=== PATIENT | female | born 1995 | race Caucasian/White ===

== ENCOUNTER 2022-12-29 19:46 | Inpatient (IN) ==
[2022-12-29] MEDS ORDERED: SODIUM CHLORIDE 0.9% 1000ML 1,000 ML IV ONE ×2 (19:55→20:33)
[2022-12-29] MEDS ORDERED: ONDANSETRON INJ 2 MG/ML 2 ML VIAL IV STA (20:43)
[2022-12-29] MEDS ORDERED: fentaNYL citrate PF 100 MCG/2 ML VIAL IV PRN ×2 (20:43→21:37)
[2022-12-29 20:46] LABS: Basophils # (auto) 0.05 K/uL (0-0.2); Basophils % (auto) 0.4 %; Eosinophils # (auto) 0.01 K/uL (0-0.50); Eosinophils % (auto) 0.1 %; Hematocrit (blood only) 38.5 % (37.0-47.0); Hemoglobin 13.2 g/dl (12.0-16.0); Immature Granulocytes # (auto) 0.04 K/uL (0.01-0.20); Immature Granulocytes % (auto) 0.3 %; Lymphocytes # (auto) 1.39 K/uL (1.2-3.4); Lymphocytes % (auto) 11.4 %; Mean Corpuscular Hemoglobin 30.5 pg (25.0-34.0); Mean Corpuscular Hgb Conc 34.3 g/dL (32.0-36.0); Mean Corpuscular Volume 88.9 fL (80.0-100.0); Mean Platelet Volume 9.9 fL (9.4-12.4); Monocytes # (auto) 0.39 K/uL (0.11-0.59); Monocytes % (auto) 3.2 %; Neutrophils # (auto) 10.33 K/uL (1.40-6.50); Neutrophils % (auto) 84.6 %; Platelet Count 328 K/uL (130-400); RDW Coefficient of Variation 12.5 % (11.5-14.5); RDW Standard Deviation 40.9 fL (36.4-46.3); Red Blood Count 4.33 M/uL (4.20-5.40); White Blood Count 12.21 K/ul (4.8-10.8)
--- NOTE | 2022-12-29 20:50 | Ultrasound Report ---
US OB <= 14 weeks fetus CLINICAL HISTORY: first trimester with vaginal spotting and abdominal pain COMPARISON STUDY: None. FINDINGS: Transabdominal scanning of the pelvis was performed with commercial representative images submitted. T he uterus measures 6.1 x 2.5 cm. No intrauterine gestational sac identified. The right ovary is nini l in size and demonstrates normal color flow. The left ovary was not well visualized. Moderate to lar ge amount of complex fluid within the pelvis suggestive of hemoperitoneum. Within the left adnexa the re is a 2.1 cm tubular structure on image 24. There is surrounding blood flow within this lesion. No pole identified. This is highly suspicious for an ectopic . There is also free fluid w ithin the right upper quadrant. The technologist was unable to performed a transvaginal ultrasound du e to the patient's unstable condition. IMPRESSION: 1. No intrauterine gestational sac. 2. There is a 2.1 cm tubular structure within the left adnexa with a moderate to large amount of comp leander fluid within the pelvis. Therefore, these finds are highly suspicious for a ruptured left ectopic with hemoperitoneum. 2. These findings were discussed with Jaxson Copeland at 8:48 PM on 12/29/2022. ACT 112: Negative or not required by law. Electronically signed by: Magdaleno Lewis M.D. 12/29/2022 8:48 PM
--- NOTE | 2022-12-29 20:52 | History & Physical Report ---
Date of Service December 29, 2022 Assessment & Plan (1) Ruptured ectopic : Plan: Being resuscitated in ED with IV fluids Discussed findings with patient is agreebale to surgey-consents obtained for diagnostic laparoscopy, possible left salpingotomy, possible left salpingectomy, possible left oopherectomy. Discussed beneifts risks and altertives with patient (prior to IV nartocis given). Patient voiced understanding and consents signed COVID test pending 200mg IV doxy to be given (2) Hemoperitoneum: (3) 7 weeks gestation of : History of Present Illness Chief Complaint: Pelvic pain Primary Care Provider: [facility] Patient is with LMP 11/10/2022 NATHAN 08/16/2023, at approx 7 weeks 1 day. JOined in room with boyfriend. Noted worsening pelvic pain and called by ER MD for ruptured ectopic on US. Patient hypotensive and tachycardic with acute abdomen on exam. Labs pending Allergies Allergy/AdvReac Type Severity Reaction Status Date / Time buckwheat Allergy Swelling Verified 04/13/21 00:53 of Lip/Tongue/Throat Home Medications Medication Instructions Recorded Confirmed Type dextroamphetamine-amphetamine 10 15 mg PO DAILY 02/05/19 04/13/21 History mg tablet (Adderall) dextroamphetamine-amphetamine ER 30 mg PO DAILY 02/05/19 04/13/21 History 30 mg 24hr capsule,extend release (Adderall XR) Patient History Medical History ADHD Anxiety Social History Smoking Status: Current some day smoker Feels Safe at Home: Yes OB History [employer]AT [employer]ORER History sexually active with condoms, denies STD history. Never seen OBGYN Physical Exam Constitutional: WD/WN, vitals as above Respiratory: normal respiratory effort, lungs clear to auscultation Cardiovascular: Rate/Rhythm: regular rhythm and + tachycardic Gastrointestinal (Abdomen): Inspection/Auscultation: + abdomen distended Percussion/Palpation: + abdomen tender and + guarding Results & Data Vital Signs (Past 12 Hours) Vital Signs Temp Pulse Pulse Resp BP BP Pulse Ox 12/29/22 20:40 88 12/29/22 20:40 86 19 94/62 L 100 12/29/22 19:49 36.5 C 95 H 20 88/64 L 98 O2 Del Method 12/29/22 20:40 12/29/22 20:40 Room Air 12/29/22 19:49 Room Air Laboratory Results Laboratory Results WBC 12.21 K/ul (4.8-10.8) H 12/29/22 20:06 RBC 4.33 M/uL (4.20-5.40) 12/29/22 20:06 Hgb 13.2 g/dl (12.0-16.0) 12/29/22 20:06 Hct 38.5 % (37.0-47.0) 12/29/22 20:06 MCV 88.9 fL (80.0-100.0) 12/29/22 20:06 MCH 30.5 pg (25.0-34.0) 12/29/22 20:06 MCHC 34.3 g/dL (32.0-36.0) 12/29/22 20:06 RDW Std Deviation 40.9 fL (36.4-46.3) 12/29/22 20:06 RDW Coeff of Makenna 12.5 % (11.5-14.5) 12/29/22 20:06 Plt Count 328 K/uL (130-400) 12/29/22 20:06 MPV 9.9 fL (9.4-12.4) 12/29/22 20:06 Immature Gran % (Auto) 0.3 % 12/29/22 20:06 Neut % (Auto) 84.6 % 12/29/22 20:06 Lymph % (Auto) 11.4 % 12/29/22 20:06 Giles % (Auto) 3.2 % 12/29/22 20:06 Eos % (Auto) 0.1 % 12/29/22 20:06 Baso % (Auto) 0.4 % 12/29/22 20:06 Neut # (Auto) 10.33 K/uL (1.40-6.50) H 12/29/22 20:06 Lymph # (Auto) 1.39 K/uL (1.2-3.4) 12/29/22 20:06 Giles # (Auto) 0.39 K/uL (0.11-0.59) 12/29/22 20:06 Eos # (Auto) 0.01 K/uL (0-0.50) 12/29/22 20:06 Baso # (Auto) 0.05 K/uL (0-0.2) 12/29/22 20:06 Immature Gran # (Auto) 0.04 K/uL (0.01-0.20) 12/29/22 20:06 HCG, Qual Cancelled 12/29/22 20:06 Impressions Ultrasound 12/29/22 19:55 US OB <= 14 weeks fetus CLINICAL HISTORY: first trimester with vaginal spotting and abdominal pain COMPARISON STUDY: None. FINDINGS: Transabdominal scanning of the pelvis was performed with client support representative images submitted. The uterus measures 6.1 x 2.5 cm. No intrauterine gestational sac identified. The right ovary is normal in size and demonstrates normal color flow. The left ovary was not well visualized. Moderate to large amount of complex fluid within the pelvis suggestive of hemoperitoneum. Within the left adnexa there is a 2.1 cm tubular structure on image 24. There is surrounding blood flow within this lesion. No pole identified. This is highly suspicious for an ectopic . There is also free fluid within the right upper quadrant. The technologist was unable to performed a transvaginal ultrasound due to the patient's unstable condition. IMPRESSION: 1. No intrauterine gestational sac. 2. There is a 2.1 cm tubular structure within the left adnexa with a moderate to large amount of complex fluid within the pelvis. Therefore, these finds are highly suspicious for a ruptured left ectopic with hemoperitoneum. 2. These findings were discussed with Jaxson Copeland at 8:48 PM on 12/29/2022. ACT 112: Negative or not required by law. Electronically signed by: Magdaleno Lewis M.D. 12/29/2022 8:48 PM
[2022-12-29] MEDS ORDERED: BUPIVACAINE 0.5 % 5 MG/1 ML MPF 30ML VIAL ONE (20:56)
[2022-12-29] MEDS ORDERED: DOXYCYCLINE HYCLATE 200 MG in DEXTROSE 5% 100 ML IV STA (20:56)
[2022-12-29 20:58] LABS: Albumin Globulin Ratio 1.4 (0.9-2); Albumin Level 4.3 gm/dl (3.4-5.0); BUN Creatinine Ratio 20.3 (10-20); Bilirubin,Total 0.6 mg/dl (0.2-1.0); Calcium 9.4 mg/dl (8.6-10.3); Creatinine Clr Calc Pharmacy 116.1 ml/min; Est GFR (African American) 139.8 ml/min; Est GFR (Non-African American) 120.6 ml/min; Potassium 3.5 mmol/L (3.5-5.1); Total Protein 7.3 gm/dl (6.0-8.3)
--- NOTE | 2022-12-29 21:01 | Emergency Department Note ---
Impression & Plan Ruptured ectopic ED Provider Note INFORMANT: Patient ED PROVIDER(S): Moshe Viera MD CHIEF COMPLAINT: Abdominal pain PLAN: Disposition: Admitted Condition: Guarded Outpatient prescription management: none Referral: None MEDICAL DECISION MAKING: Patient presented to emergency [place] because of abdominal pain. Protocol was initiated by nursing. Patient underwent ultrasound imaging and had blood work obtained. Her CBC and chemistry was unremarkable. Her quantitative hCG was elevated. The patient's ultrasound was very concerning for ruptured ectopic pr egnancy. Consultation was made with Dr. Nelson of [employer]. Patient was treated with IV fluids and IV fentanyl. She was feeling better after pain management. MEDIA EXECUTIVE noted the patient would need emergent operative intervention. Patient was taken to the OR suite for further management. After review of the information above and other included data, I feel the patient requires emergent surgical intervention. Triage Nursing notes reviewed and agree them. Vital Signs: reviewed and remarkable for hypotension Prior /Outside records reviewed: none Differential diagnosis: Appendicitis, ovarian cyst, ovarian torsion, ectopic , TOA, PID, infections, diverticulitis, UTI, obstruction, mesenteric ischemia, aortic pathology, inflammatory bowel disease, renal colic, as well as other pathologies. Diagnostics, as interpreted by me: EC Lead ECG performed and revealed Normal sinus rhythm at 97, normal [place], QRS normal. No elevation or depression. No PACs or PVCs Cardiac Monitoring:Cardiac monitoring ordered by me: The patient was placed on continuous cardiac monitoring and observed. It revealed a normal sinus rhythm at 98 beats per minute without ectopy or evidence of dysrhythmia. Medical decision rules: none Imaging studies: Ultrasound as noted above. Concerning for ruptured ectopic . Abdominal free fluid noted. HPI: The patient is a 27year old female who presents to the Emergency Room with complaints of lower abdominal pain. This started today at 6 PM and is described as severe and sudden. Patient notes she has a positive home test. Last menstrual period was November 17. The patient also notes the following associated symptoms, lightheadedness, vaginal spotting for 10 days. The patient has found no relieving factors. Current pain is rated as 6/10. Pt denies LOC, headache, fevers, chills, diaphoresis, visual changes, neck pain, chest pain, breathing difficulties, nausea, vomiting, back pain, melena, hematochezia, urinary symptoms, numbness, weakness, lymphadenopathy, rash, or other complaints. PAST MEDICAL HISTORY: See Below, ADHD PAST SURGICAL HISTORY: See Below, patient denies SOCIAL HISTORY: See Below, smoker HOME MEDICATIONS: See Below ALLERGIES: See Below VITALS: See Below PHYSICAL EXAMINATION: GENERAL: Awake, alert, well-appearing, in no distress HENT: Normocephalic, atraumatic. Oropharynx unremarkable. EYES: No pale rmal conjunctiva. Sclera non-icteric. NECK: Inspection normal. Non-tender. Supple. No nuchal rigidity. FROM. No masses. RESPIRATORY: Clear to auscultation. No wheezes. No rales. Normal respiratory effort. CARDIAC: Borderline tachycardic rate. Normal rhythm. No murmurs. No rubs. Extremities warm and well perfused. Pulses equal. No JVD. GI: Soft, mildly-distended. Diffuse tenderness to palpation. Mild rebound and guarding. No masses. PELVIC: Deferred. MUSCULOSKELETAL: Atraumatic. Chest examination reveals no tenderness. The back is symmetrical on inspection without obvious abnormality. There is no CVA tenderness to palpation. No joint edema. LOWER EXTREMITIES: Calves are equal size bilaterally and non-tender. No edema. No discoloration. NEURO: Normal sensorium. No sensory or motor deficits noted. SKIN: No rash or jaundice noted. CRITICAL CARE: I have personally spent greater than 30 minutes of critical care time in the direct management of this patient. This includes bedside care, interpretation of diagnostic studies, and testing, discussion with consultants, patient, and other required patient management activities. These minutes are in excess of all separately billable procedures. 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 Tender Required: No Beliefs That Will Affect Care: None Current Living Situation: Significant Other Other Information That Helps Us Care for You: No Feels Safe at Home: Yes Safety Concerns: Feels Safe At This Time Assistive Devices: None Allergies Allergies Allergy/AdvReac Type Severity Reaction Status Date / Time buckwheat Allergy Swelling Verified 04/13/21 00:53 of Lip/Tongue/Throat Home Meds Home Medications Medication Instructions Recorded Confirmed dextroamphetamine-amphetamine 10 15 mg PO DAILY 02/05/19 04/13/21 mg tablet (Adderall) dextroamphetamine-amphetamine ER 30 mg PO DAILY 02/05/19 04/13/21 30 mg 24hr capsule,extend release (Adderall XR) Previous Rx's Medication Instructions Recorded ibuprofen 600 mg tablet 600 mg PO Q6H PRN pain #30 tabs 12/30/22 oxycodone-acetaminophen 5 mg-325 1 tab PO Q4H PRN pain #10 tabs 12/30/22 mg tablet (Percocet) Results & Data (ED) Vital Signs Vital Signs - 24 hr 12/29/22 19:49 12/29/22 20:40 12/29/22 20:40 Temperature 36.5 C Temperature Source Oral Pulse Rate 95 H 88 Pulse Rate [Apical] 86 Respiratory Rate 20 19 Respiratory Effort / Characteristics Non-Labored Spontaneous Respiratory Depth Normal Blood Pressure 88/64 L Blood Pressure [Right Arm] 94/62 L Blood Pressure Mean 72 Blood Pressure Mean [Right Arm] 72 Pulse Oximetry 98 100 Oxygen Delivery Method Room Air Room Air Sepsis Recent Fever Within 48 Hours No Sepsis New/Unexplained Change in Mental Status N/A Sepsis Action Taken by Nursing No Action Required 12/29/22 20:52 Temperature Temperature Source Pulse Rate Pulse Rate [Apical] 94 H Respiratory Rate 18 Respiratory Effort / Characteristics Respiratory Depth Blood Pressure Blood Pressure [Right Arm] 98/72 L Blood Pressure Mean Blood Pressure Mean [Right Arm] 80 Pulse Oximetry 100 Oxygen Delivery Method Room Air Sepsis Recent Fever Within 48 Hours Sepsis New/Unexplained Change in Mental Status Sepsis Action Taken by Nursing Laboratory Data 12/29/22 20:06 12/29/22 20:06 Lab Results 12/29/22 12/29/22 12/29/22 Range/Units 20:06 20:06 20:06 WBC 12.21 H (4.8-10.8) K/ul RBC 4.33 (4.20-5.40) M/uL Hgb 13.2 (12.0-16.0) g/dl Hct 38.5 (37.0-47.0) % MCV 88.9 (80.0-100.0) fL MCH 30.5 (25.0-34.0) pg MCHC 34.3 (32.0-36.0) g/dL RDW Std Deviation 40.9 (36.4-46.3) fL RDW Coeff of Makenna 12.5 (11.5-14.5) % Plt Count 328 (130-400) K/uL MPV 9.9 (9.4-12.4) fL Immature Gran % (Auto) 0.3 % Neut % (Auto) 84.6 % Lymph % (Auto) 11.4 % Alexander % (Auto) 3.2 % Eos % (Auto) 0.1 % Baso % (Auto) 0.4 % Neut # (Auto) 10.33 H (1.40-6.50) K/uL Lymph # (Auto) 1.39 (1.2-3.4) K/uL Alexander # (Auto) 0.39 (0.11-0.59) K/uL Eos # (Auto) 0.01 (0-0.50) K/uL Baso # (Auto) 0.05 (0-0.2) K/uL Immature Gran # (Auto) 0.04 (0.01-0.20) K/uL Sodium 135 L (136-145) mmol/L Potassium 3.5 (3.5-5.1) mmol/L Chloride 100 (98-107) mmol/L Carbon Dioxide 26 (21-32) mmol/L Anion Gap 9 (3-11) BUN 13 (6-23) mg/dl Creatinine 0.64 (0.6-1.2) mg/dl Est Cr Clr Drug Dosing 116.1 ml/min Est GFR ( Amer) 139.8 ml/min Est GFR (Non-Af Amer) 120.6 ml/min BUN/Creatinine Ratio 20.3 H (10-20) Glucose 175 H (70-99(Fasting)) mg/dl Calcium 9.4 (8.6-10.3) mg/dl Total Bilirubin 0.6 (0.2-1.0) mg/dl AST 16 (13-39) U/L ALT 21 (7-52) U/L Alkaline Phosphatase 57 (34-104) U/L Total Protein 7.3 (6.0-8.3) gm/dl Albumin 4.3 (3.4-5.0) gm/dl Globulin 3.0 (2.5-4.0) gm/dl Albumin/Globulin Ratio 1.4 (0.9-2) Lipase 11 (11-82) U/L HCG, Qual Cancelled HCG, Quant mIU/ml SARS-CoV-2, RNA, NAAT (NEGATIVE) Blood Type Antibody Screen Crossmatch 12/29/22 12/29/22 12/29/22 Range/Units 20:06 20:06 20:30 WBC (4.8-10.8) K/ul RBC (4.20-5.40) M/uL Hgb (12.0-16.0) g/dl Hct (37.0-47.0) % MCV (80.0-100.0) fL MCH (25.0-34.0) pg MCHC (32.0-36.0) g/dL RDW Std Deviation (36.4-46.3) fL RDW Coeff of Makenna (11.5-14.5) % Plt Count (130-400) K/uL MPV (9.4-12.4) fL Immature Gran % (Auto) % Neut % (Auto) % Lymph % (Auto) % Alexander % (Auto) % Eos % (Auto) % Baso % (Auto) % Neut # (Auto) (1.40-6.50) K/uL Lymph # (Auto) (1.2-3.4) K/uL Alexander # (Auto) (0.11-0.59) K/uL Eos # (Auto) (0-0.50) K/uL Baso # (Auto) (0-0.2) K/uL Immature Gran # (Auto) (0.01-0.20) K/uL Sodium (136-145) mmol/L Potassium (3.5-5.1) mmol/L Chloride (98-107) mmol/L Carbon Dioxide (21-32) mmol/L Anion Gap (3-11) BUN (6-23) mg/dl Creatinine (0.6-1.2) mg/dl Est Cr Clr Drug Dosing ml/min Est GFR ( Amer) ml/min Est GFR (Non-Af Amer) ml/min BUN/Creatinine Ratio (10-20) Glucose (70-99(Fasting)) mg/dl Calcium (8.6-10.3) mg/dl Total Bilirubin (0.2-1.0) mg/dl AST (13-39) U/L ALT (7-52) U/L Alkaline Phosphatase (34-104) U/L Total Protein (6.0-8.3) gm/dl Albumin (3.4-5.0) gm/dl Globulin (2.5-4.0) gm/dl Albumin/Globulin Ratio (0.9-2) Lipase (11-82) U/L HCG, Qual HCG, Quant [id number] mIU/ml SARS-CoV-2, RNA, NAAT NEGATIVE (NEGATIVE) Blood Type O Positive Antibody Screen NEGATIVE Crossmatch See Detail Administered Medications Discontinued Medications Bupivacaine HCl (Bupivacaine 0.5 % 5 Mg/1 Ml Mpf 30ml Vial) Confirm Administered Dose 30 ml .ROUTE .STK-MED ONE Stop: 12/29/22 20:57 Last Admin: 12/29/22 23:08 Dose: 12 ml Documented By: [id number] Fentanyl Citrate (Fentanyl Citrate Pf 100 Mcg/2 Ml Vial) 50 mcg IV Q15M PRN PRN Reason: Pain Stop: 01/12/23 20:42 Last Admin: 12/29/22 20:56 Dose: 50 mcg Documented By: MERLENE Sodium Chloride (Nss 1000ml) 1,000 mls @ 999 mls/hr IV .Q1H1M ONE Stop: 12/29/22 20:55 Last Infusion: 12/30/22 01:32 Dose: 0 mls/hr Documented By: Admin: 12/29/22 20:41 Dose: 999 mls/hr Documented By: Sodium Chloride (Nss 1000ml) 1,000 mls @ 999 mls/hr IV .Q1H1M ONE Stop: 12/29/22 21:33 Last Infusion: 12/30/22 01:32 Dose: 0 mls/hr Documented By: Admin: 12/29/22 20:53 Dose: 999 mls/hr Documented By: Doxycycline Hyclate 200 mg/ (Dextrose) 120 mls @ 50 mls/hr IV NOW STA Stop: 12/29/22 23:19 Last Admin: 12/29/22 21:50 Dose: 50 mls/hr Documented By: [id number] Sodium Chloride (Nss 1000ml) 1,000 mls @ 125 mls/hr IV .Q8H GABE Stop: 01/28/23 21:14 Last Admin: 12/30/22 06:10 Dose: Not Given Documented By: Admin: 12/30/22 03:29 Dose: 125 mls/hr Documented By: Admin: 12/30/22 01:30 Dose: Not Given Documented By: AJAY Ketorolac Tromethamine (Ketorolac 30 Mg/Ml Vial) 30 mg IV Q6H PRN PRN Reason: Pain Stop: 12/30/22 23:19 Last Admin: 12/30/22 03:33 Dose: 30 mg Documented By: AJAY Ondansetron HCl (Ondansetron Inj 2 Mg/Ml 2 Ml Vial) 4 mg IV NOW STA Stop: 12/29/22 20:44 Last Admin: 12/29/22 20:56 Dose: 4 mg Documented By: MERLENE Oxycodone/Acetaminophen (Oxycodone/Acetaminophen 5mg/325mg Tab) 1 tab PO Q4H PRN PRN Reason: Pain (Scale 1,2,3,4,5) Stop: 12/30/22 23:19 Last Admin: 12/30/22 06:39 Dose: 1 tab Documented By: AJAY Imaging Data Radiologist's Impression: Ultrasound 12/29/22 19:55 US OB <= 14 weeks fetus CLINICAL HISTORY: first trimester with vaginal spotting and abdominal pain COMPARISON STUDY: None. FINDINGS: Transabdominal scanning of the pelvis was performed with medical claims representative images submitted. The uterus measures 6.1 x 2.5 cm. No intrauterine gestational sac identified. The right ovary is normal in size and demonstrates normal color flow. The left ovary was not well visualized. Moderate to large amount of complex fluid within the pelvis suggestive of hemoperitoneum. Within the left adnexa there is a 2.1 cm tubular structure on image 24. There is surrounding blood flow within this lesion. No pole identified. This is highly suspicious for an ectopic . There is also free fluid within the right upper quadrant. The technologist was unable to performed a transvaginal ultrasound due to the patient's unstable condition. IMPRESSION: 1. No intrauterine gestational sac. 2. There is a 2.1 cm tubular structure within the left adnexa with a moderate to large amount of complex fluid within the pelvis. Therefore, these finds are hi ghly suspicious for a ruptured left ectopic with hemoperitoneum. 2. These findings were discussed with Jaxson Copeland at 8:48 PM on 12/29/2022. ACT 112: Negative or not required by law. Electronically signed by: Magdaleno Lewis M.D. 12/29/2022 8:48 PM Discharge Plan Visit Data Chief Complaint: Pelvic Pain Stated Complaint: SHARP PELVIC PAIN,CHEST PAIN, ED Provider: Moshe Viera Discharge Problem: Ruptured ectopic Patient Disposition: Admitted As Inpatient Condition: Good Discharge Instructions Interventions: ED Discharge Assessment Last Done: 12/29/22 21:27
[2022-12-29] MEDS ORDERED: ONDANSETRON INJ 2 MG/ML 2 ML VIAL IV PRN ×2 (21:15→21:37)
[2022-12-29] MEDS ORDERED: ACETAMINOPHEN 325 MG TAB PO PRN (21:15)
[2022-12-29] MEDS ORDERED: PROPOFOL IV EMULSION 10 MG/ML 20 ML VIAL IV ONE ×2 (21:17→23:22)
[2022-12-29] MEDS ORDERED: SUCCINYLCHOLINE 100MG/5ML SYR IV ONE (21:17)
[2022-12-29] MEDS ORDERED: fentaNYL citrate PF 100 MCG/2 ML VIAL ONE (21:17)
[2022-12-29] MEDS ORDERED: ROCURONIUM BROMIDE 10 MG/ML 5 ML VIAL IV ONE (21:17)
[2022-12-29] MEDS ORDERED: ePHEDrine sulfate 50 MG/ML AMP IV PRN (21:37)
[2022-12-29] MEDS ORDERED: HYDROmorphone INJ 2 MG/ML SYR/VIAL IV PRN (21:37)
[2022-12-29] MEDS ORDERED: ATROPINE SULFATE 0.1 MG/ML 10ML SYR IV PRN (21:37)
--- NOTE | 2022-12-29 21:37 | Anesthesiology Consultation ---
Date of Service December 29, 2022 Assessment & Plan ASA [id number] Proposed Anesthesia Anesthesia Type: General Risk / Benefits Reviewed With: PT / POA / Parent / Guardian, Accepts Plan and Informed Consent Obtained Additional Comments: full stomach--> rsi. emergency so cannot wait for npo status History Surgery Operation Date: 12/29/22 21:30 Proposed Procedures p Laparoscopic Ectopic - Leana Phan MD, PhD Height/Weight Height: 5 ft 3 in Weight: 63.2 kg Allergies Allergy/AdvReac Type Severity Reaction Status Date / Time buckwheat Allergy Swelling Verified 04/13/21 00:53 of Lip/Tongue/Throat Medications Home Medications Medication Instructions Recorded Confirmed Last Taken dextroamphetamine-amphetamine 10 15 mg PO DAILY 02/05/19 04/13/21 04/12/21 mg tablet (Adderall) dextroamphetamine-amphetamine ER 30 mg PO DAILY 02/05/19 04/13/21 04/12/21 30 mg 24hr capsule,extend release (Adderall XR) Active Medications Generic Name Dose Route Start Last Admin Trade Name Freq PRN Reason Stop Dose Admin Fentanyl Citrate 50 mcg 12/29/22 20:43 12/29/22 20:56 Fentanyl Citrate Pf 100 Mcg/2 Ml Vial IV 01/12/23 20:42 50 mcg Q15M PRN Administration Pain NPO Date Last Intake of Fluids: 12/29/22 Time Last Intake of Fluids: 19:00 Date Last Intake of Solids: 12/29/22 Time Last Intake of Solids: 19:00 Past Medical History Medical History ADHD Anxiety Anxiety Facial tingling Headache Insomnia Paresthesia Vision disturbance Vitamin D deficiency Exercise / Class Metabolic Activity II 4-5 Yardwork/Stairs/Walk up hill Past Anesthesia History No Hx of Anesthesia Complications and No Family Hx of Anesthesia Complications History of PONV No Hx of PONV and No Hx of Motion Sickness Social History Smoking Status: Current some day smoker Review of Systems denies fever/cough/ colds/ chest pain/ SOB/ DAVID denies DAVID Physical Exam Vital Signs Last Vital Signs Temp 36.5 C 12/29/22 19:49 Pulse 81 12/29/22 21:07 Resp 19 12/29/22 21:07 BP 111/62 12/29/22 21:07 Pulse Ox 100 12/29/22 21:07 O2 Del Method Room Air 12/29/22 21:27 ENMT Mouth: no TMJ abnormality and no dentition abnormality Thyromental Distance: > or= 3.5 Finger Breadths Mallampati Class: II Neck neck extension not limited Respiratory normal respiratory effort; no respiratory distress Auscultation: lungs clear to auscultation bilaterally Cardiovascular Rate/Rhythm: regular rate and regular rhythm Neurologic moves all extremities Psychiatric Orientation: alert and oriented x 3 Testing Laboratory Results 12/29/22 20:06 12/29/22 20:06 HCG, Quant [id number] mIU/ml 12/29/22 20:06 Blood Type O Positive 12/29/22 20:06 12/29/22 20:06 HCG, Quant [id number]
[2022-12-29] MEDS ORDERED: GLYCOPYRROLATE 0.2 MG/ML VIAL ONE ×2 (22:08→22:09)
[2022-12-29] MEDS ORDERED: NEOSTIGMINE METHYLSULFATE 1 MG/ML 10ML VIAL ONE (22:08)
[2022-12-29] MEDS ORDERED: ePHEDrine sulfate 50 MG/ML SYR ONE ×2 (22:08→22:57)
[2022-12-29] MEDS ORDERED: PHENYLEPHRINE 100MCG/ML 5ML SYR ONE ×2 (22:08→22:57)
[2022-12-29] MEDS ORDERED: ONDANSETRON INJ 2 MG/ML 2 ML VIAL ONE (22:13)
[2022-12-29] MEDS ORDERED: DEXAMETHASONE SOD INJ 4 MG/ML VIAL ONE (22:13)
[2022-12-29] MEDS ORDERED: SODIUM CHLORIDE 0.9% 250 ML IV PRN (22:21)
[2022-12-29] MEDS ORDERED: SUGAMMADEX SODIUM 200 MG/2 ML VIAL IV ONE (23:05)
[2022-12-29] MEDS ORDERED: oxyCODONE/ACETAMINOPHEN 5mg/325mg TAB PO PRN (23:20)
[2022-12-29] MEDS ORDERED: KETOROLAC 30 MG/ML VIAL IV PRN (23:20)
--- NOTE | 2022-12-29 23:30 | Operative Report ---
Post Operative Report Pre & Post Diagnosis Operation Date: 12/29/22 21:30 Pre-Op Diagnosis: Ruptured ectopic Hemoperitoneum Post-Op Diagnosis: Ruptured left ectopic Hemoperitoneum approximately 2 L I identified the patient and participated in the time-out.: Yes Procedure Operation Date: 12/29/22 21:30 Actual Procedures p Laparoscopic left salpingectomy- Leana Phan MD, PhD Surgeon Leana Phan MD, PhD Director Of Acquisition Marketing Temitope Gomez MD Estimated Blood Loss 2,000 Findings Consistent with Post-Op Diagnosis Surgical abdomen, distended, tender with rebound Normal-appearing external genitalia Vagina: Normal, small amount of bleeding Cervix: Approximately fingertip dilated, retroverted uterus Hemoperitoneum approximately 2 L with active bleeding from left fallopian tube Noted ruptured ectopic on left fallopian tube, with active bleeding, normal- appearing left and right ovaries, normal-appearing uterus, normal-appearing right fallopian tube. Appendix not visualized Fluids 2400 mls Specimens Left fallopian tube with ectopic Drains Miles catheter Anesthesia Type General Complications None Disposition Accompanied Patient To Recovery: No Indications Ruptured ectopic , hemoperitoneum, patient unstable with hypotension and tachycardia Description of Procedure Attestation: My Director Of Acquisition Marketing was necessary throughout the procedure(s) for tissue retraction, camera operation I understand that section 1842 (b)(7)(D) of the Social Security Act generally prohibits Medicare physician fee schedule payment for the services of [id number] in teaching hospitals when qualified residents are available to furnish such services. I certify that the services for which payment is claimed were medically necessary, and that no qualified resident was available to perform the services. I further understand that these services are subject to post-payment review by the Medicare carrier. Procedure The patient was taken to the operating room where general anesthesia was found to be adequate. She was placed in [facility] stirrups. She was prepped and draped in a sterile fashion. The bladder was drained with Miles catheter and a uterine manipulator (sponge stick) was placed in a sterile fashion. Attention was turned of the abdomen in a sterile fashion. After infusion of local anesthesia , a 5 mm infraumbilical incision was made with a scalpel. A 5 mm trocar was placed under laparoscopic visualization, and noted large amount of blood in abdomen. Gas was turned on, and pneumoperitoneum was achieved. The underlying bowel and vasculature were inspected and found to be free from injury. At this time noted approximately 2 L of fresh blood in the abdomen and pelvis, with active bleeding noted from the left side of the pelvis. Trendelenburg position was then obtained Next, a 5 mm right lower quadrant port and a left 5 mm port were placed under laparoscopic visualization. The left lower quadrant port was then changed to 11 mm port. The left fallopian tube with ruptured ectopic and active bleeding was identified. At this point Dr. Aguero was called in to assist. A LigaSure device was used to remove the fallopian tube from the mesosalpinx, ovary, and uterus. A 10 bag was then placed through the port, and the left fallopian tube and ectopic were placed into the laparoscopic bag and removed from the abdomen. Hemostasis was ensured. The remainder of the clot and blood was removed from the abdomen and pelvis with suction and irrigation. Evaluation of the upper abdomen revealed no further pathology. Attempt was then made with a Alcides Oconnor to close the 11 mm port, but was unsuccessful as I was unable to achieve pneumoperitoneum. Pneumoperitoneum was released and the trocars were removed. At this point I attempted to close the fascia with estrus retractors, but due to the depth of the subcutaneous tissue, and the bowel that was felt underneath, I did not feel that it was safe at this point to close the 11 mm fascial defect. Decision was then made to close with subcutaneous tissue with 2-0 Vicryl in interrupted fashion. The skin was closed with 4-0 Vicryl in a subcuticular fashion. Dermabond was placed over the incisions. The uterine manipulator was removed and hemostasis ensured. The patient was cleaned and dried and legs brought down from lithotomy position simultaneously. The patient was extubated and transfered to recovery in stable condition. Sponge, lap and needle counts were reported correct by the nursing staff following the procedure. Stephen Phan MD PhD I attest to the content of the Intraoperative Record and any orders documented therein. Any exceptions are noted below.
--- NOTE | 2022-12-29 23:44 | Anesthesiology Progress Note ---
Date of Service December 29, 2022 Anesthesia Post Procedure Vital Signs Vital Signs: Temp Pulse Pulse Resp BP BP Pulse Ox 12/29/22 21:27 12/29/22 21:07 81 19 111/62 100 12/29/22 20:52 94 H 18 98/72 L 100 12/29/22 20:40 88 12/29/22 20:40 86 19 94/62 L 100 12/29/22 19:49 36.5 C 95 H 20 88/64 L 98 O2 Del Method 12/29/22 21:27 Room Air 12/29/22 21:07 Room Air 12/29/22 20:52 Room Air 12/29/22 20:40 12/29/22 20:40 Room Air 12/29/22 19:49 Room Air Pain Intensity Abdomen: Pain Intensity: 5 Transfer of Care Handoff Completed per policy Notes Mental Status: alert / awake / arousable and participated in evaluation Patient Amnestic to Procedure: Yes Nausea / Vomiting: adequately controlled Pain: adequately controlled Airway Patency, RR, SpO2: stable & adequate BP & HR: stable & adequate Hydration State: stable & adequate Anesthetic Complications: no major complications apparent and Pt Satisfied with anesthetic care Notes: pt recieving a unit of blood
[2022-12-30] MEDS: SODIUM CHLORIDE 0.9% 1000ML 1,000 ML IV SCH ×3 (01:30→06:10)
[2022-12-30 05:24] LABS: Hematocrit (blood only) 29.7 % (37.0-47.0); Hemoglobin 9.8 g/dl (12.0-16.0)
--- NOTE | 2022-12-30 09:51 | Obstetrical Progress Note ---
Date of Service December 30, 2022 Subjective Ambulation: limited ambulation Voiding: watts catheter in place Passing Gas:: Yes Diet Tolerance:: regular diet Current Pain Level(1-10): 0 doing well Physical Exam Constitutional WD/WN, vitals as above Gastrointestinal (Abdomen) Inspection/Auscultation: abdomen normal to inspection and + abdominal surgical incision Musculoskeletal Extremities: extremities normal to inspection Skin no rashes, warm and dry Neurologic patellar DTR's 2+ bilat, sensation intact Psychiatric A+Ox3, euthymic affect Results & Data Vital Signs (Past 12 Hours) Vital Signs Temp Pulse Pulse Pulse Resp BP BP 12/30/22 07:25 36.9 C 89 16 99/63 L 12/30/22 04:00 36.9 C 94 H 18 99/53 L 12/30/22 02:45 36.8 C 97 H 16 101/47 L 12/30/22 02:00 36.6 C 98 H 16 92/48 L 12/30/22 01:45 36.6 C 98 H 16 92/48 L 12/30/22 00:45 36.3 C L 90 14 95/53 L 12/30/22 01:15 36.3 C L 93 H 14 94/52 L 12/30/22 00:45 36.3 C L 90 14 95/53 L 12/30/22 01:00 36.3 C L 12/30/22 00:25 84 14 93/54 L 12/30/22 00:15 93 H 16 91/51 L 12/30/22 00:05 36.1 C L 90 18 97/59 L 12/29/22 23:55 96 H 18 98/56 L 12/29/22 23:45 97 H 14 100/58 L 12/29/22 23:35 90 16 102/53 L 12/29/22 23:28 36 C L 94 H 14 98/47 L Pulse Ox O2 Del Method O2 Flow Rate 12/30/22 07:25 Room Air 12/30/22 04:00 100 Room Air 12/30/22 02:45 100 Room Air 12/30/22 02:00 98 12/30/22 01:45 98 12/30/22 00:45 100 Room Air 12/30/22 01:15 100 12/30/22 00:45 100 12/30/22 01:00 12/30/22 00:25 100 Room Air 12/30/22 00:15 100 Room Air 12/30/22 00:05 100 Room Air 12/29/22 23:55 100 Room Air 12/29/22 23:45 100 Room Air 12/29/22 23:35 100 Oxymask 6 12/29/22 23:28 100 Oxymask 6 Laboratory Results 12/29/22 12/29/22 12/29/22 20:06 20:06 20:06 WBC 12.21 H RBC 4.33 Hgb 13.2 Hct 38.5 MCV 88.9 MCH 30.5 MCHC 34.3 RDW Std Deviation 40.9 RDW Coeff of Makenna 12.5 Plt Count 328 MPV 9.9 Immature Gran % (Auto) 0.3 Neut % (Auto) 84.6 Lymph % (Auto) 11.4 [place] % (Auto) 3.2 Eos % (Auto) 0.1 Baso % (Auto) 0.4 Neut # (Auto) 10.33 H Lymph # (Auto) 1.39 [place] # (Auto) 0.39 Eos # (Auto) 0.01 Baso # (Auto) 0.05 Immature Gran # (Auto) 0.04 Absolute Nucleated RBC Nucleated RBC % (auto) Neutrophils % (Manual) Band Neutrophils % Lymphocytes % (Manual) Prolymphocyte % Reactive Lymphs % (Man) Monocytes % (Manual) Eosinophils % (Manual) Basophils % (Manual) Metamyelocytes % (Man) Myelocytes % (Man) Promyelocytes % (Man) Blast Cells % (Manual) Plasma Cell % (Manual) Other Cells % Nucleated RBC % Neutrophils # (Manual) Band Neutrophils # Total Absolute Neuts Lymphocytes # (Manual) Prolymphocyte # Reactive Lymphs # Total Abs Lymphocytes Monocytes # (Manual) Eosinophils # (Manual) Basophils # (Manual) Metamyelocytes # (Man) Myelocytes # (Manual) Promyelocytes # (Man) Blast Cells # (Man) Plasma Cell # (Manual) Other Cells # Nucleated RBCs # (Man) Hypersegmented Neuts Hyposegmented Neuts Hypogranular Neuts Large Granular Lymphs # Lrg Granular Lymphs Hairy Cells Smudge Cells Toxic Granulation Toxic Vacuolation Dohle Bodies Elias Rods Platelet Estimate Hypogranular Platelets Giant Platelets Platelet Satelliting RBC Morphology Polychromasia Hypochromasia Poikilocytosis Basophilic Stippling Anisocytosis Microcytosis Macrocytosis Spherocytes Pappenheimer Bodies Sickle Cells Target Cells Tear Drop Cells Ovalocytes Stomatocytes Estrada-Green Bodies Echinocytes Acanthocytes (Spur) Rouleaux RBC Agglutinates Schistocytes Sezary Cell Sodium 135 L Potassium 3.5 Chloride 100 Carbon Dioxide 26 Anion Gap 9 BUN 13 Creatinine 0.64 Est Cr Clr Drug Dosing 116.1 Est GFR ( Amer) 139.8 Est GFR (Non-Af Amer) 120.6 BUN/Creatinine Ratio 20.3 H Glucose 175 H Calcium 9.4 Total Bilirubin 0.6 AST 16 ALT 21 Alkaline Phosphatase 57 Total Protein 7.3 Albumin 4.3 Globulin 3.0 Albumin/Globulin Ratio 1.4 Lipase 11 HCG, Qual Cancelled HCG, Quant SARS-CoV-2, RNA, NAAT Blood Parasites ID Blood Type Blood Type Recheck Antibody Screen Crossmatch 12/29/22 12/29/22 12/29/22 20:06 20:06 20:30 WBC RBC Hgb Hct MCV MCH MCHC RDW Std Deviation RDW Coeff of Makenna Plt Count MPV Immature Gran % (Auto) Neut % (Auto) Lymph % (Auto) [place] % (Auto) Eos % (Auto) Baso % (Auto) Neut # (Auto) Lymph # (Auto) [place] # (Auto) Eos # (Auto) Baso # (Auto) Immature Gran # (Auto) Absolute Nucleated RBC Nucleated RBC % (auto) Neutrophils % (Manual) Band Neutrophils % Lymphocytes % (Manual) Prolymphocyte % Reactive Lymphs % (Man) Monocytes % (Manual) Eosinophils % (Manual) Basophils % (Manual) Metamyelocytes % (Man) Myelocytes % (Man) Promyelocytes % (Man) Blast Cells % (Manual) Plasma Cell % (Manual) Other Cells % Nucleated RBC % Neutrophils # (Manual) Band Neutrophils # Total Absolute Neuts Lymphocytes # (Manual) Prolymphocyte # Reactive Lymphs # Total Abs Lymphocytes Monocytes # (Manual) Eosinophils # (Manual) Basophils # (Manual) Metamyelocytes # (Man) Myelocytes # (Manual) Promyelocytes # (Man) Blast Cells # (Man) Plasma Cell # (Manual) Other Cells # Nucleated RBCs # (Man) Hypersegmented Neuts Hyposegmented Neuts Hypogranular Neuts Large Granular Lymphs # Lrg Granular Lymphs Hairy Cells Smudge Cells Toxic Granulation Toxic Vacuolation Dohle Bodies Elias Rods Platelet Estimate Hypogranular Platelets Giant Platelets Platelet Satelliting RBC Morphology Polychromasia Hypochromasia Poikilocytosis Basophilic Stippling Anisocytosis Microcytosis Macrocytosis Spherocytes Pappenheimer Bodies Sickle Cells Target Cells Tear Drop Cells Ovalocytes Stomatocytes Estrada-Green Bodies Echinocytes Acanthocytes (Spur) Rouleaux RBC Agglutinates Schistocytes Sezary Cell Sodium Potassium Chloride Carbon Dioxide Anion Gap BUN Creatinine Est Cr Clr Drug Dosing Est GFR ( Amer) Est GFR (Non-Af Amer) BUN/Creatinine Ratio Glucose Calcium Total Bilirubin AST ALT Alkaline Phosphatase Total Protein Albumin Globulin Albumin/Globulin Ratio Lipase HCG, Qual HCG, Quant SARS-CoV-2, RNA, NAAT NEGATIVE Blood Parasites ID Blood Type O Positive Blood Type Recheck Antibody Screen NEGATIVE Crossmatch See Detail 12/30/22 12/30/22 12/30/22 04:41 04:41 04:41 WBC Cancelled RBC Cancelled Hgb Cancelled 9.8 L D Hct Cancelled 29.7 L MCV Cancelled MCH Cancelled MCHC Cancelled RDW Std Deviation Cancelled RDW Coeff of Makenna Cancelled Plt Count Cancelled MPV Cancelled Immature Gran % (Auto) Cancelled Neut % (Auto) Cancelled Lymph % (Auto) Cancelled [place] % (Auto) Cancelled Eos % (Auto) Cancelled Baso % (Auto) Cancelled Neut # (Auto) Cancelled Lymph # (Auto) Cancelled [place] # (Auto) Cancelled Eos # (Auto) Cancelled Baso # (Auto) Cancelled Immature Gran # (Auto) Cancelled Absolute Nucleated RBC Cancelled Nucleated RBC % (auto) Cancelled Neutrophils % (Manual) Cancelled Band Neutrophils % Cancelled Lymphocytes % (Manual) Cancelled Prolymphocyte % Cancelled Reactive Lymphs % (Man) Cancelled Monocytes % (Manual) Cancelled Eosinophils % (Manual) Cancelled Basophils % (Manual) Cancelled Metamyelocytes % (Man) Cancelled Myelocytes % (Man) Cancelled Promyelocytes % (Man) Cancelled Blast Cells % (Manual) Cancelled Plasma Cell % (Manual) Cancelled Other Cells % Cancelled Nucleated RBC % Cancelled Neutrophils # (Manual) Cancelled Band Neutrophils # Cancelled Total Absolute Neuts Cancelled Lymphocytes # (Manual) Cancelled Prolymphocyte # Cancelled Reactive Lymphs # Cancelled Total Abs Lymphocytes Cancelled Monocytes # (Manual) Cancelled Eosinophils # (Manual) Cancelled Basophils # (Manual) Cancelled Metamyelocytes # (Man) Cancelled Myelocytes # (Manual) Cancelled Promyelocytes # (Man) Cancelled Blast Cells # (Man) Cancelled Plasma Cell # (Manual) Cancelled Other Cells # Cancelled Nucleated RBCs # (Man) Cancelled Hypersegmented Neuts Cancelled Hyposegmented Neuts Cancelled Hypogranular Neuts Cancelled Large Granular Lymphs Cancelled # Lrg Granular Lymphs Cancelled Hairy Cells Cancelled Smudge Cells Cancelled Toxic Granulation Cancelled Toxic Vacuolation Cancelled Dohle Bodies Cancelled Elias Rods Cancelled Platelet Estimate Cancelled Hypogranular Platelets Cancelled Giant Platelets Cancelled Platelet Satelliting Cancelled RBC Morphology Cancelled Polychromasia Cancelled Hypochromasia Cancelled Poikilocytosis Cancelled Basophilic Stippling Cancelled Anisocytosis Cancelled Microcytosis Cancelled Macrocytosis Cancelled Spherocytes Cancelled Pappenheimer Bodies Cancelled Sickle Cells Cancelled Target Cells Cancelled Tear Drop Cells Cancelled Ovalocytes Cancelled Stomatocytes Cancelled Estrada-Green Bodies Cancelled Echinocytes Cancelled Acanthocytes (Spur) Cancelled Rouleaux Cancelled RBC Agglutinates Cancelled Schistocytes Cancelled Sezary Cell Cancelled Sodium Potassium Chloride Carbon Dioxide Anion Gap BUN Creatinine Est Cr Clr Drug Dosing Est GFR ( Amer) Est GFR (Non-Af Amer) BUN/Creatinine Ratio Glucose Calcium Total Bilirubin AST ALT Alkaline Phosphatase Total Protein Albumin Globulin Albumin/Globulin Ratio Lipase HCG, Qual HCG, Quant SARS-CoV-2, RNA, NAAT Blood Parasites ID Cancelled Blood Type Blood Type Recheck O Positive Antibody Screen Crossmatch
--- NOTE | 2022-12-31 20:13 | Electrocardiogram Report ---
Test Reason : Blood Pressure : / mmHG Vent. Rate : 097 BPM Atrial Rate : 097 BPM P-R Int : 136 ms QRS Dur : 076 ms QT Int : 352 ms P-R-T Axes : 048 033 049 degrees QTc Int : 447 ms Normal sinus rhythm Normal ECG When compared with ECG of 05-FEB-2019 03:26, No significant change was found Confirmed by Young Collier ([id number]) on 12/31/2022 8:13:34 PM Referred By: REFERRED SELF Confirmed By:Young Collier
== END 2022-12-30 10:35 | disposition home or self-care (01) | DRG 817 ==
LOC: ED 19:46 → OR 21:27 → 4E1 21:28

== ENCOUNTER 2024-01-04 10:58 | Inpatient (IN) ==
--- NOTE | 2024-01-04 11:27 | ED Triage Note ---
Date of Service January 04, 2024 Provider in Triage Author: Davin Bosch History of Present Illness This patient was briefly evaluated while in triage. An abbreviated physical exam was performed. This patient is a 28-year-old Female who presents to the ED for evaluation of lightheadedness, worsening cough and nausea. The patient reports that she has been unable to remain hydrated. Patient's O2 saturation at home was around 70% this morning. Patient underwent surgery 3 days ago for an ectopic . Patient denies any unusual discomfort or appearance of her surgical site. Physical Exam CONSTITUTIONAL: Healthy and well nourished. Patient does not appear in any acute distress. HEENT: No scleral icterus or conjunctival injection. RESPIRATORY: Clear to auscultation bilaterally with no wheezing, crackles, rhonchi or stridor. CARDIOVASCULAR: Regular rate and rhythm with no murmurs, rubs or gallops. GASTROINTESTINAL: Bowel sounds present in all quadrants. Minimal nonfocal tenderness to palpation. INTEGUMENTARY: No rash or other significant dermatologic conditions noted. HEMATOLOGIC: No ecchymosis or petechiae. PSYCHIATRIC: Positive affect. NEUROLOGIC: No focal neurologic deficits noted. Initial orders for labs and / or imaging were placed and patient was placed in the waiting area until a bed is available. Please see further documentation for the full ED course.
[2024-01-04 12:19] LABS: Hematocrit (blood only) 19.3 % (37.0-47.0); Hemoglobin 6.5 g/dl (12.0-16.0); Mean Corpuscular Hemoglobin 30.5 pg (25.0-34.0); Mean Corpuscular Hgb Conc 33.7 g/dL (32.0-36.0); Mean Corpuscular Volume 90.6 fL (80.0-100.0); Mean Platelet Volume 9.6 fL (9.4-12.4); Platelet Count 249 K/uL (130-400); RDW Coefficient of Variation 12.9 % (11.5-14.5); RDW Standard Deviation 42.5 fL (36.4-46.3); Red Blood Count 2.13 M/uL (4.20-5.40); White Blood Count 12.32 K/ul (4.8-10.8)
[2024-01-04 12:27] LABS: Albumin Globulin Ratio 1.5 (0.9-2); Albumin Level 3.9 gm/dl (3.4-5.0); BUN Creatinine Ratio 22.4 (10-20); Bilirubin,Total 0.4 mg/dl (0.2-1.0); Calcium 8.9 mg/dl (8.6-10.3); Creatinine Clr Calc Pharmacy 131.3 ml/min; Est GFR (African American) 143.4 ml/min; Est GFR (Non-African American) 123.7 ml/min; Globulin 2.6 gm/dl (2.5-4.0); Total Protein 6.5 gm/dl (6.0-8.3)
[2024-01-04] MEDS: ONDANSETRON INJ 2 MG/ML 2 ML VIAL IV STA ×2 (12:31→14:30)
[2024-01-04] MEDS: SODIUM CHLORIDE 0.9% 1,000 ML IV ONE (12:32)
[2024-01-04] MEDS: ONDANSETRON INJ 2 MG/ML 2 ML VIAL ONE (12:32)
[2024-01-04 12:33] LABS: Basophils # (auto) 0.03 K/uL (0.00-0.20); Basophils % (auto) 0.2 %; Eosinophils # (auto) 0.03 K/uL (0.00-0.50); Eosinophils % (auto) 0.2 %; Immature Granulocytes % (auto) 0.8 %; Lymphocytes # (auto) 1.81 K/uL (1.20-3.40); Lymphocytes % (auto) 14.7 %; Monocytes # (auto) 0.52 K/uL (0.11-0.59); Monocytes % (auto) 4.2 %; Neutrophils # (auto) 9.83 K/uL (1.40-6.50); Neutrophils % (auto) 79.9 %; Polychromasia 1+
[2024-01-04 12:35] LABS: Troponin I High Sensitivity 502.3 pg/ml (0-14)
[2024-01-04] MEDS: OPTIRAY 320 125ml IV ONE (12:40)
[2024-01-04 12:41] LABS: Influenza A virus by PCR Negative (Neg); Influenza B virus by PCR Negative (Neg); RSV by PCR Negative (Neg); SARS CoV2 RNA(COVID-19) Ceph NEGATIVE (Negative)
--- NOTE | 2024-01-04 12:41 | Emergency Department Note ---
Impression & Plan Hypoxia, Lightheadedness, Non-ST elevation SD (NSTEMI), Elevated brain natriuretic peptide (BNP) level, Bilateral pneumonia, Pulmonary edema, Anemia requiring transfusions ED Provider Note HISTORY OF PRESENT ILLNESS: Patient is a 28-year-old female presenting with lightheadedness and shortness of breath. Patient reports that she had a surgery for ruptured ectopic 3 days ago. Reports she been doing well up until today when she woke up today and felt very lightheaded every time she stood up. Reports that she gets very nauseous and feels like she is going to pass out. She took her home oxygen level and a home pulse ox and her sats were in the 70s. She denies any chest pain. Denies any vaginal bleeding or discharge. On my assessment, she is complaining of feeling very lightheaded like she is going to pass out. ROS: as above PHYSICAL EXAM: Constitutional: Patient appears in no acute distress. HENT: Head: Normocephalic and atraumatic. Eyes: EOMI, PERRL Mouth/Throat: Mucous membranes moist. Neck: Trachea midline. Neck supple. Cardiovascular: Tachycardic with regular rhythm. No murmurs, rubs or gallops. Intact distal pulses. Pulmonary/Chest: Patient is tachypneic. She is on 6 L via oxime mask. No expiratory wheezes appreciated Abdominal: Abdomen soft, no tenderness, rebound or guarding. Musculoskeletal: No edema, tenderness or deformity noted. Skin: Warm and dry. No rash, erythema, pallor or cyanosis Psychiatric: Appropriate mood and affect for situation. Neurological: Alert and keenly responsive. CN II-XII grossly intact, moving all extremities equally and fully. MDM: - Vitals signs showed hypoxia. Patient was started on 6 L via oxi-mask. - History obtained via patient. History as above. - Chronic conditions affecting care: ADHD - Differential diagnoses include, but are not limited to: Acute coronary syndrome; pulmonary embolism; dissection; tension pneumothorax; pneumonia; intra-abdominal hemorrhage - Order placed for continuous cardiac monitoring. At this time, monitor showed rate of 96 bpm with normal sinus rhythm, per my interpretation. - External medical records reviewed. Operative report dated 01/01/2024 was reviewed. Patient was taken to the OR for an operative laparoscopic surgery for right salpingectomy and evacuation of clot secondary to a ruptured ectopic . She was found to have some hemoperitoneum. - EKG interpreted by myself showed normal sinus rhythm. Rate tachycardic at 100 bpm. QT 350. No acute ischemic changes. - Laboratory workup interpreted by myself showed leukocytosis (WBC 12.32); anemia (Hgb 6.5); slight hyponatremia (Na 135); normal lactate; elevated troponin (502.3); elevated BNP (552) - CT PE negative for PE, but noted to have small to moderate pleural effusions (R>L) and evidence of fluid overload/congestive failure. Also noted to have asymmetric airspace opacities in both lungs (R>L) - CT abdomen/pelvis with IV contrast showed small hyperdense pelvic fluid with trace ascites compatible with her recent surgery. - Blood cultures ordered - Type and screen ordered - IV rocephin ordered empirically for sepsis coverage. - 1 unit PRBC ordered. Patient given 1g IV tylenol and 4 mg IV zofran for headache and nausea. - Patient's saturations >93% on 8L oxymask. - Given patient's NSTEMI and elevated BNP in setting of pulmonary edema, will need further inpatient workup for heart failure, such as echocardiogram. - Discussion was had with geriatric case manager about patient's case and need for admission - Hospitalist consulted for admission - Patient admitted to [facility] for further evaluation and management. I have personally spent 43 minutes of critical care time in the direct management of this patient. This includes bedside care, interpretation of diagnostic studies, and testing, discussion with consultants, patient, and family members, and other required patient management activities. This 43 minutes is in excess of all separately billable procedures. ASSESSMENT AND PLAN: Diagnosis: sepsis; anemia requiring transfusion; NSTEMI; elevated BNP; hypoxia; lightheadedness; pulmonary edema Plan: admit Past Med/Surg History Problem List (Updated 01/04/24 @ 14:38 by Donna Dumont PA-C) Acute respiratory failure with hypoxia Anemia requiring transfusions (Acute) Pulmonary edema (Acute) Bilateral pneumonia (Acute) Elevated brain natriuretic peptide (BNP) level (Acute) Non-ST elevation SD (NSTEMI) (Acute) Lightheadedness (Acute) Hypoxia (Acute) Postop check Hypokalemia (Acute) Acute hypotension (Acute) Ectopic (Acute) Ectopic without intrauterine Vaginal spotting (Acute) Abnormal human chorionic gonadotropin (hCG) History of ectopic Abdominal pain, RLQ (Acute) Encounter for assessment for suspected ectopic (Acute) (Acute) Chronic migraine Adult ADHD (attention deficit hyperactivity disorder) Ruptured ectopic (Acute) 7 weeks gestation of Hemoperitoneum Ruptured ectopic Medical History Anxiety Vitamin D deficiency Vision disturbance Paresthesia Insomnia Headache Facial tingling Anxiety ADHD Social History Smoking Status: Current every day smoker Tobacco Type: Cigarettes Cigarettes Per Day: 3; Do You Dip or Chew Tobacco: No; Hx Alcohol Use: Yes Alcohol type: beer Hx Substance Use: No Preferred Language: Chinese Communication Ability: Effective Salvage Inspector Required: No Beliefs That Will Affect Care: None Current Living Situation: Significant Other Feels Safe at Home: Yes Assistive Devices: None Allergies Allergies Allergy/AdvReac Type Severity Reaction Status Date / Time buckwheat Allergy Severe Swelling Verified 01/04/24 13:33 of Lip/Tongue/Throat Home Meds Home Medications Medication Instructions Recorded Confirmed dextroamphetamine-amphetamine ER 30 mg PO QAM 01/01/24 01/04/24 30 mg 24hr capsule,extend release dextroamphetamine-amphetamine 10 15 mg PO DAILYBL 01/04/24 01/04/24 mg tablet Previous Rx's Medication Instructions Recorded ferrous sulfate 325 mg (65 mg 325 mg PO DAILY #60 tabs 01/01/24 iron) tablet ibuprofen 600 mg tablet 600 mg PO Q6H PRN pain #30 tabs 01/01/24 oxycodone-acetaminophen 5 mg-325 1 tab PO Q4H PRN pain #20 tabs 01/01/24 mg tablet (Percocet) Results & Data (ED) Vital Signs Vital Signs - 24 hr 01/04/24 11:25 01/04/24 12:18 01/04/24 12:18 Temperature 36.8 C Temperature Source Oral Pulse Rate 97 H 88 Pulse Rate [Apical] 91 H Pulse Rhythm Regular Pulse Strength Normal Respiratory Rate 16 22 18 Respiratory Effort / Characteristics Non-Labored Spontaneous Respiratory Depth Normal Respiratory Pattern Regular Blood Pressure 108/74 Blood Pressure [Left Arm] 109/66 Blood Pressure Mean 85 Blood Pressure Mean [Left Arm] 80 Blood Pressure Position Sitting Pulse Oximetry 91 68 L 86 L Oxygen Delivery Method Room Air Room Air Oxymask Oxygen Flow Rate 6 Sepsis Recent Fever Within 48 Hours No Sepsis New/Unexplained Change in Mental Status No Sepsis Action Taken by Nursing No Action Required 01/04/24 12:26 01/04/24 13:00 Temperature Temperature Source Pulse Rate 95 H Pulse Rate [Apical] 93 H Pulse Rhythm Pulse Strength Respiratory Rate 21 Respiratory Effort / Characteristics Respiratory Depth Respiratory Pattern Blood Pressure Blood Pressure [Left Arm] 112/68 Blood Pressure Mean Blood Pressure Mean [Left Arm] 82 Blood Pressure Position Pulse Oximetry 98 Oxygen Delivery Method Oxymask Oxygen Flow Rate 8 Sepsis Recent Fever Within 48 Hours Sepsis New/Unexplained Change in Mental Status Sepsis Action Taken by Nursing Laboratory Data 01/04/24 11:53 01/04/24 11:53 Lab Results 01/04/24 01/04/24 01/04/24 Range/Units 11:53 12:26 12:27 WBC 12.32 H (4.8-10.8) K/ul RBC 2.13 L (4.20-5.40) M/uL Hgb 6.5 L* (12.0-16.0) g/dl POC Hgb (12.0-16.0) g/dl Hct 19.3 L* (37.0-47.0) % POC Hct (37-47) % MCV 90.6 (80.0-100.0) fL MCH 30.5 (25.0-34.0) pg MCHC 33.7 (32.0-36.0) g/dL RDW Std Deviation 42.5 (36.4-46.3) fL RDW Coeff of Makenna 12.9 (11.5-14.5) % Plt Count 249 (130-400) K/uL MPV 9.6 (9.4-12.4) fL Immature Gran % (Auto) 0.8 % Neut % (Auto) 79.9 % Lymph % (Auto) 14.7 % Lyman % (Auto) 4.2 % Eos % (Auto) 0.2 % Baso % (Auto) 0.2 % Neut # (Auto) 9.83 H (1.40-6.50) K/uL Lymph # (Auto) 1.81 (1.20-3.40) K/uL Lyman # (Auto) 0.52 (0.11-0.59) K/uL Eos # (Auto) 0.03 (0.00-0.50) K/uL Baso # (Auto) 0.03 (0.00-0.20) K/uL Immature Gran # (Auto) 0.10 (0.01-0.20) K/uL Polychromasia 1+ PT 9.7 (9.0-12.0) Seconds INR 0.9 (0.9-1.1) D-Dimer 3670 H* (0-500) ug/L FEU POC Sodium (135-144) mmol/L Sodium 135 L (136-145) mmol/L POC Potassium (3.3-5.0) mmol/L Potassium 4.0 (3.5-5.1) mmol/L POC Chloride (101-112) mmol/L Chloride 104 (98-107) mmol/L Carbon Dioxide 26 (21-32) mmol/L POC Total CO2 (24-31) mmol/L Anion Gap 5 (3-11) POC Anion Gap (16-25) mmol/L POC BUN (7-18) mg/dl BUN 13 (6-23) mg/dl Creatinine 0.58 L (0.6-1.2) mg/dl POC Creatinine (0.6-1.3) mg/dl Est Cr Clr Drug Dosing 131.3 ml/min Est GFR ( Amer) 143.4 ml/min Est GFR (Non-Af Amer) 123.7 ml/min BUN/Creatinine Ratio 22.4 H (10-20) Glucose 103 H (70-99(Fasting)) mg/dl POC Glucose (other) (70-99) mg/dl Lactate 0.9 (0.4-2.0) mmol/L Calcium 8.9 (8.6-10.3) mg/dl POC Ioniz Calcium Mariann (1.12-1.32) mmol/l Total Bilirubin 0.4 (0.2-1.0) mg/dl AST 21 (13-39) U/L ALT 25 (7-52) U/L Alkaline Phosphatase 63 (34-104) U/L Troponin I High Sens 502.3 H* (0-14) pg/ml B-Natriuretic Peptide 552 H (0-100) pg/ml Total Protein 6.5 (6.0-8.3) gm/dl Albumin 3.9 (3.4-5.0) gm/dl Globulin 2.6 (2.5-4.0) gm/dl Albumin/Globulin Ratio 1.5 (0.9-2) Lipase 8 L (11-82) U/L SARS-CoV-2 (PCR) NEGATIVE (Negative) Influenza Type A (PCR) Negative (Neg) Influenza Type B (PCR) Negative (Neg) RSV (RT-PCR) Negative (Neg) Blood Type O Positive Antibody Screen NEGATIVE Crossmatch See Detail 01/04/24 Range/Units 12:35 WBC (4.8-10.8) K/ul RBC (4.20-5.40) M/uL Hgb (12.0-16.0) g/dl POC Hgb 7.5 L (12.0-16.0) g/dl Hct (37.0-47.0) % POC Hct 22 L (37-47) % MCV (80.0-100.0) fL MCH (25.0-34.0) pg MCHC (32.0-36.0) g/dL RDW Std Deviation (36.4-46.3) fL RDW Coeff of Makenna (11.5-14.5) % Plt Count (130-400) K/uL MPV (9.4-12.4) fL Immature Gran % (Auto) % Neut % (Auto) % Lymph % (Auto) % Lyman % (Auto) % Eos % (Auto) % Baso % (Auto) % Neut # (Auto) (1.40-6.50) K/uL Lymph # (Auto) (1.20-3.40) K/uL Lyman # (Auto) (0.11-0.59) K/uL Eos # (Auto) (0.00-0.50) K/uL Baso # (Auto) (0.00-0.20) K/uL Immature Gran # (Auto) (0.01-0.20) K/uL Polychromasia PT (9.0-12.0) Seconds INR (0.9-1.1) D-Dimer (0-500) ug/L FEU POC Sodium 137 (135-144) mmol/L Sodium (136-145) mmol/L POC Potassium 3.9 (3.3-5.0) mmol/L Potassium (3.5-5.1) mmol/L POC Chloride 103 (101-112) mmol/L Chloride (98-107) mmol/L Carbon Dioxide (21-32) mmol/L POC Total CO2 23 L (24-31) mmol/L Anion Gap (3-11) POC Anion Gap 16.0 (16-25) mmol/L POC BUN 12 (7-18) mg/dl BUN (6-23) mg/dl Creatinine (0.6-1.2) mg/dl POC Creatinine 0.6 (0.6-1.3) mg/dl Est Cr Clr Drug Dosing ml/min Est GFR ( Amer) ml/min Est GFR (Non-Af Amer) ml/min BUN/Creatinine Ratio (10-20) Glucose (70-99(Fasting)) mg/dl POC Glucose (other) 98 (70-99) mg/dl Lactate (0.4-2.0) mmol/L Calcium (8.6-10.3) mg/dl POC Ioniz Calcium Mariann 1.18 (1.12-1.32) mmol/l Total Bilirubin (0.2-1.0) mg/dl AST (13-39) U/L ALT (7-52) U/L Alkaline Phosphatase (34-104) U/L Troponin I High Sens (0-14) pg/ml B-Natriuretic Peptide (0-100) pg/ml Total Protein (6.0-8.3) gm/dl Albumin (3.4-5.0) gm/dl Globulin (2.5-4.0) gm/dl Albumin/Globulin Ratio (0.9-2) Lipase (11-82) U/L SARS-CoV-2 (PCR) (Negative) Influenza Type A (PCR) (Neg) Influenza Type B (PCR) (Neg) RSV (RT-PCR) (Neg) Blood Type Antibody Screen Crossmatch Administered Medications Discontinued Medications Sodium Chloride (Nss) 1,000 mls @ 999 mls/hr IV .Q1H1M ONE Stop: 01/04/24 13:28 Last Infusion: 01/04/24 13:38 Dose: Infused Documented By: Admin: 01/04/24 12:32 Dose: 999 mls/hr Documented By: SELENE Ceftriaxone Sodium (Rocephin) 2,000 mg in 50 mls @ 100 mls/hr IV NOW STA Stop: 01/04/24 13:51 Last Infusion: 01/04/24 14:39 Dose: Infused Documented By: Admin: 01/04/24 14:09 Dose: 100 mls/hr Documented By: SELENE Acetaminophen (Ofirmev) 1,000 mg in 100 mls @ 400 mls/hr IV NOW STA Stop: 01/04/24 14:26 Last Admin: 01/04/24 14:30 Dose: 400 mls/hr Documented By: SELENE Ioversol (Optiray 320 125ml) 120 ml IV ONCE ONE Stop: 01/04/24 12:41 Last Admin: 01/04/24 12:40 Dose: 120 ml Documented By: JUWAN Ondansetron HCl (Ondansetron Inj 2 Mg/Ml 2 Ml Vial) 4 mg IV NOW STA Stop: 01/04/24 12:28 Last Admin: 01/04/24 12:31 Dose: 4 mg Documented By: SELENE Ondansetron HCl (Ondansetron Inj 2 Mg/Ml 2 Ml Vial) Confirm Administered Dose 4 mg .ROUTE .STK-MED ONE Stop: 01/04/24 12:30 Last Admin: 01/04/24 12:32 Dose: Not Given Documented By: SELENE Ondansetron HCl (Ondansetron Inj 2 Mg/Ml 2 Ml Vial) 4 mg IV NOW STA Stop: 01/04/24 14:13 Last Admin: 01/04/24 14:30 Dose: 4 mg Documented By: SELENE Imaging Data Radiologist's Impression: Chest CTA 01/04/24 11:28 CT ANGIOGRAM OF THE CHEST CLINICAL HISTORY: Dyspnea. Hypoxia. COMPARISON STUDY: Chest x-ray dated 02/05/2019 TECHNIQUE: Following the IV administration of 120 cc of Optiray 320, CT angiogram of the chest was performed from the upper abdomen to the thoracic inlet utilizing the pulmonary embolus protocol. Images are reviewed in the axial, sagittal, and coronal planes. 3-D MIPS images are created and assessed. IV contrast was administered without complication. A dose lowering technique was utilized adhering to the principles of ALARA. FINDINGS: Thyroid: Imaged portions of the thyroid gland are normal in size and attenuation. Thoracic aorta: The thoracic aorta is normal in caliber and demonstrates bovine variant arch anatomy. No dissection is seen. Pulmonary vasculature: The pulmonary trunk is normal in caliber. There are no filling defects identified in main, lobar, or segmental pulmonary branches to suggest pulmonary embolus. Heart: The heart is top normal in size and without pericardial effusion. Lungs and pleural spaces: There are kcowd-si-ijwakmpx pleural effusions, right larger than left with dependent consolidation. Diffuse intralobular septal thickening indicates fluid overload. Asymmetric airspace opacities are seen throughout both lungs, right lung greater than left. The trachea and central airways are clear. No pneumothorax is seen. Mediastinum: There is no mediastinal lymphadenopathy. Misty: Clear. Axillae: There is no axillary lymphadenopathy. Upper abdomen: There is a small hiatal hernia. Partially visualized upper abdominal viscera is otherwise within normal limits. Skeletal structures: No lytic or blastic bony lesions are seen. IMPRESSION: 1. There is no evidence of pulmonary embolus in the main, lobar, or segmental pulmonary arteries. 2. There are iodpn-gl-wsftmtvh pleural effusions, right larger than left. 3. There is evidence of fluid overload/congestive failure. 4. There are asymmetric airspace opacities seen throughout both lungs, greater on the right. This could represent pulmonary edema and/or multifocal pneumonia. Clinical correlation will be required and radiographic follow-up to resolution is recommended. ACT 112: Negative or not required by law. Electronically signed by: Clarence Reyes M.D. 01/04/2024 12:55 PM Abdomen/Pelvis CT 01/04/24 12:25 CT abd pelvis IV con only CLINICAL HISTORY: anemia; recent surgery TECHNIQUE: Helical axial images of the abdomen and pelvis were obtained and displayed. Automated dose lowering techniques and/or adjustment according to patient size were utilized for this exam. This exam was performed with intravenous contrast. CT DOSE: 1525.39 mGy.cm COMPARISON: None available at the time of this dictation. FINDINGS: Lower chest: For findings above the diaphragm, please see CT chest performed same day. Liver: Unremarkable. No focal lesions are seen. Gallbladder and biliary tree: No calcified gallstones. Normal caliber wall. No intra- or extrahepatic biliary ductal dilation. Pancreas: Unremarkable, no focal lesions. Spleen: Unremarkable. Adrenals: Unremarkable. Kidneys and ureters: Unremarkable. Bladder: Unremarkable. Reproductive organs: Unremarkable. Bowel: The appendix is normal. Lymph nodes Retroperitoneal: Unremarkable. Pelvic: Unremarkable. Mesenteric: Unremarkable. Peritoneum: Small hyperdense fluid is seen in the pelvis. Vessels: Unremarkable. Abdominal wall: Unremarkable. Bones: Degenerative changes are seen in the spine. IMPRESSION: 1. Small hyperdense pelvic fluid with trace ascites, compatible with recent ectopic surgery. No large hematoma is seen. 2. Please see CT chest for findings above the diaphragm. ACT 112: Negative or not required by law. Electronically signed by: Ben Benítez M.D. 01/04/2024 12:58 PM Discharge Plan Visit Data Chief Complaint: Illness Stated Complaint: LIGHTHEADED AND LOW OXYGEN AFTER PROCEDURE ED Provider: Helena Da Silva Discharge Problem: Hypoxia, Lightheadedness, Non-ST elevation SD (NSTEMI), Elevated brain natriuretic peptide (BNP) level, Bilateral pneumonia, Pulmonary edema, Anemia requiring transfusions Forms Stand Alone Forms: iconDial Prescriptions Prescriptions: No Action dextroamphetamine-amphetamine 30 mg capsule,extended release 24hr 30 mg PO QAM oxycodone-acetaminophen [Percocet] 5-325 mg Tablet 1 tab PO Q4H PRN (Reason: pain) Qty: 20 0RF ibuprofen 600 mg Tablet 600 mg PO Q6H PRN (Reason: pain) Qty: 30 0RF ferrous sulfate 325 mg (65 mg iron) tablet 325 mg PO DAILY Qty: 60 0RF dextroamphetamine-amphetamine 10 mg tablet 15 mg PO DAILYBL Referrals Referrals: Roberta Bennett, [Primary Care Provider] -
[2024-01-04 12:48] LABS: iSTAT Creatinine 0.6 mg/dl (0.6-1.3); iSTAT Hemoglobin 7.5 g/dl (12.0-16.0); iSTAT Ionized Calcium 1.18 mmol/l (1.12-1.32); iSTAT Potassium 3.9 mmol/L (3.3-5.0)
[2024-01-04 12:57] LABS: INR 0.9 (0.9-1.1); Prothrombin Time 9.7 Seconds (9.0-12.0)
--- NOTE | 2024-01-04 12:58 | CT Scan Report ---
CT ANGIOGRAM OF THE CHEST CLINICAL HISTORY: Dyspnea. Hypoxia. COMPARISON STUDY: Chest x-ray dated 02/05/2019 TECHNIQUE: Following the IV administration of 120 cc of Optiray 320, CT angiogram of the chest was pe rformed from the upper abdomen to the thoracic inlet utilizing the pulmonary embolus protocol. Images are reviewed in the axial, sagittal, and coronal planes. 3-D MIPS images are created and assessed. I V contrast was administered without complication. A dose lowering technique was utilized adhering to the principles of ALARA. FINDINGS: Thyroid: Imaged portions of the thyroid gland are normal in size and attenuation. Thoracic aorta: The thoracic aorta is normal in caliber and demonstrates bovine variant arch anatomy. No dissection is seen. Pulmonary vasculature: The pulmonary trunk is normal in caliber. There are no filling defects identif ied in main, lobar, or segmental pulmonary branches to suggest pulmonary embolus. Heart: The heart is top normal in size and without pericardial effusion. Lungs and pleural spaces: There are jjpzy-qc-rsldubnd pleural effusions, right larger than left with dependent consolidation. Diffuse intralobular septal thickening indicates fluid overload. Asymmetric airspace opacities are seen throughout both lungs, right lung greater than left. The trachea and cent ral airways are clear. No pneumothorax is seen. Mediastinum: There is no mediastinal lymphadenopathy. Misty: Clear. Axillae: There is no axillary lymphadenopathy. Upper abdomen: There is a small hiatal hernia. Partially visualized upper abdominal viscera is otherw ise within normal limits. Skeletal structures: No lytic or blastic bony lesions are seen. IMPRESSION: 1. There is no evidence of pulmonary embolus in the main, lobar, or segmental pulmonary arteries. 2. There are vvufm-eh-mnbamlbj pleural effusions, right larger than left. 3. There is evidence of fluid overload/congestive failure. 4. There are asymmetric airspace opacities seen throughout both lungs, greater on the right. This cou ld represent pulmonary edema and/or multifocal pneumonia. Clinical correlation will be required and r adiographic follow-up to resolution is recommended. ACT 112: Negative or not required by law. Electronically signed by: Clarence Reyes M.D. 01/04/2024 12:55 PM
--- NOTE | 2024-01-04 12:59 | CT Scan Report ---
CT abd pelvis IV con only CLINICAL HISTORY: anemia; recent surgery TECHNIQUE: Helical axial images of the abdomen and pelvis were obtained and displayed. Automated dose lowering techniques and/or adjustment according to patient size were utilized for this exam. This e xam was performed with intravenous contrast. CT DOSE: 1525.39 mGy.cm COMPARISON: None available at the time of this dictation. FINDINGS: Lower chest: For findings above the diaphragm, please see CT chest performed same day. Liver: Unremarkable. No focal lesions are seen. Gallbladder and biliary tree: No calcified gallstones. Normal caliber wall. No intra- or extrahepatic biliary ductal dilation. Pancreas: Unremarkable, no focal lesions. Spleen: Unremarkable. Adrenals: Unremarkable. Kidneys and ureters: Unremarkable. Bladder: Unremarkable. Reproductive organs: Unremarkable. Bowel: The appendix is normal. Lymph nodes Retroperitoneal: Unremarkable. Pelvic: Unremarkable. Mesenteric: Unremarkable. Peritoneum: Small hyperdense fluid is seen in the pelvis. Vessels: Unremarkable. Abdominal wall: Unremarkable. Bones: Degenerative changes are seen in the spine. IMPRESSION: 1. Small hyperdense pelvic fluid with trace ascites, compatible with recent ectopic surger y. No large hematoma is seen. 2. Please see CT chest for findings above the diaphragm. ACT 112: Negative or not required by law. Electronically signed by: Ben Benítez M.D. 01/04/2024 12:58 PM
[2024-01-04 13:43] LABS: D Dimer 3670 ug/L FEU (0-500)
[2024-01-04] MEDS ORDERED: SODIUM CHLORIDE 0.9% 250 ML IV PRN ×2 (14:08→14:15)
[2024-01-04] MEDS: cefTRIAXone SODIUM 2,000 MG/50 ML BAG IV STA (14:09)
[2024-01-04] MEDS: ACETAMINOPHEN 1,000 MG/100 ML VIAL IV STA (14:30)
--- NOTE | 2024-01-04 14:34 | History & Physical Report ---
<Statement entered by Shaun Gamboa, - 01/04/24 16:12> I have seen and examined the patient and have discussed the case with the provider above. I have reviewed the advanced practitioner's documentation, and I agree with, and take responsibility for that plan of care. 15 minutes spent in additional care. Patient seen and examined while still in the ED. Significant other at bedside as well. Patient reports feeling a bit better with the oxygen. Packed red blood cells currently infusing. Patient tolerating it well to this point. CV: S1-S2 with faint grade 2/6 systolic ejection murmur. Lungs: Decreased breath sounds few crackles at the bases. Reviewed assessment, plan of care and orders as outlined below with CLAUDIA Date of Service January 04, 2024 Assessment & Plan (1) Anemia requiring transfusions: (2) Pulmonary edema: (3) Acute respiratory failure with hypoxia: (4) Ectopic : Plan: Acute Resp failure with Hypoxia Fluid overload, bilateral pleural effusions R> L Acute blood loss anemia Elevated Troponin due to demand ischemia - Admit to tele - CTA chest completed showin. There is no evidence of pulmonary embolus in the main, lobar, or segmental pulmonary arteries. 2. There are nkatg-fx-cyhwqwmu pleural effusions, right larger than left. 3. There is evidence of fluid overload/congestive failure. 4. There are asymmetric airspace opacities seen throughout both lungs, greater on the right. This could represent pulmonary edema and/or multifocal pneumonia. Clinical correlation will be required and radiographic follow-up to resolution is recommended. - Likely that fluid overload is due to significant postoperative anemia as prior to surgical procedure had a hemoglobin of 13, was 8.0 postoperatively, today upon presentation is 6.5. -Transfusing 2 units PRBCs stat, first started while at bedside -H&H at 2000 tonight, routine a.m. labs -IV Lasix 40 mg to be administered in between units -New oxygen requirement of 8L via OxyMask, O2 sats 98% at bedside, wean as tolerated -Smoking history with tobacco, encourage cessation at bedside, patient denies need for nicotine patch -Anemia panel was obtained prior to transfusion, iron 25, TIBC 315, Transferrin 8 %, pt has iron supplementation on med rec however was prescribed upon discharge and hasn't taken it - Troponin of 454.3, trending, due to acute demand ischemia and anemia as above - EKG without any acute changes or signs of ischemia - Consider 2D echo tomorrow per day team - Received dose of ceftriaxone in the ER, will hold on further antibiotics as this does not appear to be infectious, afebrile, WBC 12 likely reactive. DVT ppx: teds, scds Lines: 2 large-bore PIV FEN/GI: Heart healthy diet CODE: Full code Dispo: From home, likely to remain in the hospital x 1-2 days A total of 80 minutes were spent with greater than 50% of that time face to face with the patient, personally reviewing all current laboratories, imaging studies, past medication reconciliation, outpatient chart review, and discussion with specialists to collaborate care for the patient with attending. Please see attending documentation for corrections and/or additions. History of Present Illness Chief Complaint: Shortness of breath, weakness, fatigue Primary Care Provider: Roberta Bennett, This is a 28 yo F with PMHx of recent laparoscopic surgical procedure invoving ectopic ruptured Right fallopian tube which was resected on 01/01/24, R ovary claudia eared normal. Within OR report it is noted that left fallopian tube was absent from previous surgery, left ovary and appeared normal. The patient is present here with her boyfriend, Luis, who is at bedside. She states that she was feeling extremely tired and fatigued yesterday. She also noticed developed dry cough. She checked her pulse ox with a home monitor this morning and noted that it was in the 70s. She does not have any supplemental O2 requirements at baseline. Patient does admit to smoking, but has not in several days since being recently admitted. Typically smokes 3 to 5 cigarettes daily has for several years. Patient denies any abdominal complaints, no vaginal bleeding, no hematuria, no bowel movement since prior to surgical procedure on 12/31 for ruptured fallopian tube for right-sided ectopic by Dr. Galindo. She reports her current complaint includes a thumping headache for which she was administered Tylenol in the ER. Pt denies fever, chills, sweats. No sick contacts. Pt tolerated po intake yesterday minimally, no nausea or vomiting. Pt takes medication for ADHD however has not had any of the adderall since prior to her admission for the ectopic , she reports about 1 week ago was last dose. Admits to tobacco use with cigarettes, has not smoked in several days, denies the need for a nicotine patch. Previous surgical hx: Left fallopian tube removal in December 2022 due to ectopic ( 1 year ago), where she also required blood transfusion at that time. Family hx: Father: Diabetes, Paternal grandfather : stroke Allergies Allergy/AdvReac Type Severity Reaction Status Date / Time buckwheat Allergy Severe Swelling Verified 01/04/24 13:33 of Lip/Tongue/Throat Home Medications Medication Instructions Recorded Confirmed Type dextroamphetamine-amphetamine ER 30 mg PO QAM 01/01/24 01/04/24 History 30 mg 24hr capsule,extend release ferrous sulfate 325 mg (65 mg 325 mg PO DAILY #60 tabs 01/01/24 01/04/24 Rx iron) tablet ibuprofen 600 mg tablet 600 mg PO Q6H PRN pain #30 tabs 01/01/24 01/04/24 Rx oxycodone-acetaminophen 5 mg-325 1 tab PO Q4H PRN pain #20 tabs 01/01/24 01/04/24 Rx mg tablet (Percocet) dextroamphetamine-amphetamine 10 15 mg PO DAILYBL 01/04/24 01/04/24 History mg tablet Past Med/Surg History Problem List (Updated 01/04/24 @ 14:38 by Donna Dumont PA-C) Acute respiratory failure with hypoxia Anemia requiring transfusions (Acute) Pulmonary edema (Acute) Bilateral pneumonia (Acute) Elevated brain natriuretic peptide (BNP) level (Acute) Non-ST elevation TX (NSTEMI) (Acute) Lightheadedness (Acute) Hypoxia (Acute) Postop check Hypokalemia (Acute) Acute hypotension (Acute) Ectopic (Acute) Ectopic without intrauterine Vaginal spotting (Acute) Abnormal human chorionic gonadotropin (hCG) History of ectopic Abdominal pain, RLQ (Acute) Encounter for assessment for suspected ectopic (Acute) (Acute) Chronic migraine Adult ADHD (attention deficit hyperactivity disorder) Ruptured ectopic (Acute) 7 weeks gestation of Hemoperitoneum Ruptured ectopic Medical History Anxiety Vitamin D deficiency Vision disturbance Paresthesia Insomnia Headache Facial tingling Anxiety ADHD Social History Smoking Status: Current every day smoker Tobacco Type: Cigarettes Cigarettes Per Day: 3; Do You Dip or Chew Tobacco: No; Hx Alcohol Use: Yes Alcohol type: beer Hx Substance Use: No Preferred Language: Kittitian Communication Ability: Effective 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 Cardiovascular: No chest pain, tightness or palpitations Abdomen: No pain, nausea, vomiting, diarrhea or constipation Musculoskeletal: No joint pain, calf pain, swelling Neurologic: No weakness, numbness/tingling, or balance problems Psychiatric: No anxiety or depression Skin: No rash or itch Physical Exam Physical Exam: General: awake, alert, no apparent distress, + white female, BMI 26.6, + pallor Head: Normocephalic, atraumatic ENT: PERRL, EOMI, no pharyngeal exudate, mucous membranes moist Chest: Absent breath sounds at bases bilaterally, on 8L via OxyMask, O2 sats 98%, no crackles or rales, dry cough on room air Cardiac: Regular rate, slightly tachycardic with sitting up in bed in the low 100s, otherwise while at rest lying down is in the mid 90s, no murmur, no JVD, normal peripheral pulses, good capillary refill Abdominal: + hypoactive BS x 4 quadrants, + surgical incisions x 4 s/p laproscopic surgery, healing well, minimal ecchymosis, no surrounding erythema or pain with palpation, soft, nondistended, nontender to palpation, no rebound or guarding Extremities: Normal inspection, no peripheral edema or erythema, calfs nontender to palpation Psych: Normal mood and affect Neuro: AAO x 3, strength intact bilaterally and rated 5/5, no motor deficits, speech is clear, no peripheral sensory deficits Results & Data Results & Data Vital Signs (Past 12 Hours) Vital Signs Temp Pulse Pulse Resp BP BP Pulse Ox 01/04/24 13:00 93 H 21 112/68 98 01/04/24 12:26 95 H 01/04/24 12:18 88 18 86 L 01/04/24 12:18 91 H 22 109/66 68 L 01/04/24 11:25 36.8 C 97 H 16 108/74 91 O2 Del Method O2 Flow Rate 01/04/24 13:00 Oxymask 8 01/04/24 12:26 01/04/24 12:18 Oxymask 6 01/04/24 12:18 Room Air 01/04/24 11:25 Room Air Laboratory Results 01/04/24 14:05 Aerobic Blood Culture - Pending Blood Anaerobic Blood Culture - Pending 01/04/24 14:00 Aerobic Blood Culture - Pending Blood Anaerobic Blood Culture - Pending 01/04/24 01/04/24 01/04/24 14:05 12:35 12:27 WBC RBC Hgb POC Hgb 7.5 L Hct POC Hct 22 L MCV MCH MCHC RDW Std Deviation RDW Coeff of Makenna Plt Count MPV Immature Gran % (Auto) Neut % (Auto) Lymph % (Auto) [place] % (Auto) Eos % (Auto) Baso % (Auto) Neut # (Auto) Lymph # (Auto) [place] # (Auto) Eos # (Auto) Baso # (Auto) Immature Gran # (Auto) Polychromasia PT INR D-Dimer POC Sodium 137 Sodium POC Potassium 3.9 Potassium POC Chloride 103 Chloride Carbon Dioxide POC Total CO2 23 L Anion Gap POC Anion Gap 16.0 POC BUN 12 BUN Creatinine POC Creatinine 0.6 Est Cr Clr Drug Dosing Est GFR ( Amer) Est GFR (Non-Af Amer) BUN/Creatinine Ratio Glucose POC Glucose (other) 98 Lactate 0.9 Calcium POC Ioniz Calcium Mariann 1.18 Iron 25 L TIBC 315 Unsaturated IBC 290 Transferrin % Sat 8 L Total Bilirubin AST ALT Alkaline Phosphatase Troponin I High Sens 454.3 H* B-Natriuretic Peptide Total Protein Albumin Globulin Albumin/Globulin Ratio Lipase Procalcitonin < 0.02 SARS-CoV-2 (PCR) Influenza Type A (PCR) Influenza Type B (PCR) RSV (RT-PCR) Blood Type Antibody Screen Crossmatch 01/04/24 01/04/24 12:26 11:53 WBC 12.32 H RBC 2.13 L Hgb 6.5 L* POC Hgb Hct 19.3 L* POC Hct MCV 90.6 MCH 30.5 MCHC 33.7 RDW Std Deviation 42.5 RDW Coeff of Makenna 12.9 Plt Count 249 MPV 9.6 Immature Gran % (Auto) 0.8 Neut % (Auto) 79.9 Lymph % (Auto) 14.7 [place] % (Auto) 4.2 Eos % (Auto) 0.2 Baso % (Auto) 0.2 Neut # (Auto) 9.83 H Lymph # (Auto) 1.81 [place] # (Auto) 0.52 Eos # (Auto) 0.03 Baso # (Auto) 0.03 Immature Gran # (Auto) 0.10 Polychromasia 1+ PT 9.7 INR 0.9 D-Dimer 3670 H* POC Sodium Sodium 135 L POC Potassium Potassium 4.0 POC Chloride Chloride 104 Carbon Dioxide 26 POC Total CO2 Anion Gap 5 POC Anion Gap POC BUN BUN 13 Creatinine 0.58 L POC Creatinine Est Cr Clr Drug Dosing 131.3 Est GFR ( Amer) 143.4 Est GFR (Non-Af Amer) 123.7 BUN/Creatinine Ratio 22.4 H Glucose 103 H POC Glucose (other) Lactate Calcium 8.9 POC Ioniz Calcium Mariann Iron TIBC Unsaturated IBC Transferrin % Sat Total Bilirubin 0.4 AST 21 ALT 25 Alkaline Phosphatase 63 Troponin I High Sens 502.3 H* B-Natriuretic Peptide 552 H Total Protein 6.5 Albumin 3.9 Globulin 2.6 Albumin/Globulin Ratio 1.5 Lipase 8 L Procalcitonin SARS-CoV-2 (PCR) NEGATIVE Influenza Type A (PCR) Negative Influenza Type B (PCR) Negative RSV (RT-PCR) Negative Blood Type O Positive Antibody Screen NEGATIVE Crossmatch See Detail Diagnostic Findings Chest CTA 01/04/24 11:28 CT ANGIOGRAM OF THE CHEST CLINICAL HISTORY: Dyspnea. Hypoxia. COMPARISON STUDY: Chest x-ray dated 02/05/2019 TECHNIQUE: Following the IV administration of 120 cc of Optiray 320, CT angiogram of the chest was performed from the upper abdomen to the thoracic inlet utilizing the pulmonary embolus protocol. Images are reviewed in the axial, sagittal, and coronal planes. 3-D MIPS images are created and assessed. IV contrast was administered without complication. A dose lowering technique was utilized adhering to the principles of ALARA. FINDINGS: Thyroid: Imaged portions of the thyroid gland are normal in size and attenuation. Thoracic aorta: The thoracic aorta is normal in caliber and demonstrates bovine variant arch anatomy. No dissection is seen. Pulmonary vasculature: The pulmonary trunk is normal in caliber. There are no filling defects identified in main, lobar, or segmental pulmonary branches to suggest pulmonary embolus. Heart: The heart is top normal in size and without pericardial effusion. Lungs and pleural spaces: There are pahwx-az-[id number] pleural effusions, right larger than left with dependent consolidation. Diffuse intralobular septal thickening indicates fluid overload. Asymmetric airspace opacities are seen throughout both lungs, right lung greater than left. The trachea and central airways are clear. No pneumothorax is seen. Mediastinum: There is no mediastinal lymphadenopathy. Misty: Clear. Axillae: There is no axillary lymphadenopathy. Upper abdomen: There is a small hiatal hernia. Partially visualized upper abdominal viscera is otherwise within normal limits. Skeletal structures: No lytic or blastic bony lesions are seen. IMPRESSION: 1. There is no evidence of pulmonary embolus in the main, lobar, or segmental pulmonary arteries. 2. There are iqnhd-yi-nzsvttbj pleural effusions, right larger than left. 3. There is evidence of fluid overload/congestive failure. 4. There are asymmetric airspace opacities seen throughout both lungs, greater on the right. This could represent pulmonary edema and/or multifocal pneumonia. Clinical correlation will be required and radiographic follow-up to resolution is recommended. ACT 112: Negative or not required by law. Electronically signed by: Clarence Reyes M.D. 01/04/2024 12:55 PM Abdomen/Pelvis CT 01/04/24 12:25 CT abd pelvis IV con only CLINICAL HISTORY: anemia; recent surgery TECHNIQUE: Helical axial images of the abdomen and pelvis were obtained and displayed. Automated dose lowering techniques and/or adjustment according to patient size were utilized for this exam. This exam was performed with intravenous contrast. CT DOSE: 1525.39 mGy.cm COMPARISON: None available at the time of this dictation. FINDINGS: Lower chest: For findings above the diaphragm, please see CT chest performed same day. Liver: Unremarkable. No focal lesions are seen. Gallbladder and biliary tree: No calcified gallstones. Normal caliber wall. No intra- or extrahepatic biliary ductal dilation. Pancreas: Unremarkable, no focal lesions. Spleen: Unremarkable. Adrenals: Unremarkable. Kidneys and ureters: Unremarkable. Bladder: Unremarkable. Reproductive organs: Unremarkable. Bowel: The appendix is normal. Lymph nodes Retroperitoneal: Unremarkable. Pelvic: Unremarkable. Mesenteric: Unremarkable. Peritoneum: Small hyperdense fluid is seen in the pelvis. Vessels: Unremarkable. Abdominal wall: Unremarkable. Bones: Degenerative changes are seen in the spine. IMPRESSION: 1. Small hyperdense pelvic fluid with trace ascites, compatible with recent ectopic surgery. No large hematoma is seen. 2. Please see CT chest for findings above the diaphragm. ACT 112: Negative or not required by law. Electronically signed by: Ben Benítez M.D. 01/04/2024 12:58 PM ECG Additional Comments: Reviewed personally without any signs of ST wave changes or signs of ischemia Code Status & VTE Plan Code Status Full code (4) Ectopic Intrauterine status: without intrauterine Laterality: right Location of ectopic : ovarian Qualified Code(s): O00.201 - Right ovarian without intrauterine
[2024-01-04 15:03] LABS: Troponin I High Sensitivity 454.3 pg/ml (0-14)
--- NOTE | 2024-01-04 15:21 | Electrocardiogram Report ---
Test Reason : Blood Pressure : / mmHG Vent. Rate : 100 BPM Atrial Rate : 100 BPM P-R Int : 128 ms QRS Dur : 080 ms QT Int : 350 ms P-R-T Axes : 040 043 028 degrees QTc Int : 451 ms Normal sinus rhythm Normal ECG When compared with ECG of 29-DEC-2022 20:08, No significant change was found Confirmed by Christopher Bauman ([id number]) on 01/04/2024 3:21:06 PM Referred By: Confirmed By:Tamir Bauman
[2024-01-04 15:32] LABS: Base Excess ABG -0.7 mEq/L (-9-1.8); HCO3 ABG 23 mmol/L (19-24); Oxygen Saturation ABG 99.4 % (90-95); PCO2 ABG 36 mmHg (35-46); PO2 ABG 98 mmHg (80-95); pH ABG 7.42 (7.35-7.45)
[2024-01-04 15:34] LABS: Allen Test Pos (Pos)
[2024-01-04] MEDS ORDERED: ONDANSETRON INJ 2 MG/ML 2 ML VIAL IV PRN (16:15)
[2024-01-04] MEDS ORDERED: ACETAMINOPHEN 325 MG TAB PO PRN (16:15)
[2024-01-04] MEDS: FUROSEMIDE 40 MG/4 ML VIAL IV ONE (18:03)
[2024-01-04 20:56] LABS: Hematocrit (blood only) 25.9 % (37.0-47.0); Hemoglobin 8.8 g/dl (12.0-16.0)
[2024-01-05 07:05] LABS: BUN Creatinine Ratio 21.9 (10-20); Calcium 8.2 mg/dl (8.6-10.3); Est GFR (African American) 138.8 ml/min; Est GFR (Non-African American) 119.7 ml/min; Hemoglobin 7.3 g/dl (12.0-16.0); Mean Corpuscular Hemoglobin 30.8 pg (25.0-34.0); Mean Corpuscular Hgb Conc 34.8 g/dL (32.0-36.0); Mean Corpuscular Volume 88.6 fL (80.0-100.0); Mean Platelet Volume 10.6 fL (9.4-12.4); Nucleated RBC # (auto) 0.02 K/uL (0.00-0.12); Nucleated RBC % (auto) 0.2 %; Platelet Count 209 K/uL (130-400); Potassium 3.8 mmol/L (3.5-5.1); RDW Coefficient of Variation 13.2 % (11.5-14.5); RDW Standard Deviation 42.6 fL (36.4-46.3); Red Blood Count 2.37 M/uL (4.20-5.40); White Blood Count 9.87 K/ul (4.8-10.8)
[2024-01-05] MEDS ORDERED: SODIUM CHLORIDE 0.9% 250 ML IV PRN (10:43)
[2024-01-05] MEDS: FUROSEMIDE 40 MG/4 ML VIAL IV ONE (11:55)
[2024-01-05] MEDS: ADVANCED PROBIOTIC 625 MG CAPSULE PO SCH (13:01)
[2024-01-05] MEDS: POLYETHYLENE (MIRALAX) 17 GM PACK PO SCH (13:01)
[2024-01-05] MEDS: cefTRIAXone SODIUM 2,000 MG/50 ML BAG IV SCH (14:22)
[2024-01-05 15:10] LABS: Hematocrit (blood only) 31.1 % (37.0-47.0); Hemoglobin 10.6 g/dl (12.0-16.0)
--- NOTE | 2024-01-05 15:24 | Hospitalist Progress Note ---
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 She checked her pulse ox at home which was noted to be in 70s. patient reports not moving bowel since after the surgery. She is being managed for the following: Pulmonary edema: Likely postoperative status/decreased mobility Acute respiratory failure with hypoxia: Patient's saturation noted to be in 70s, required 6 to 8 L oxygen at presentation, was noted to be tachypneic at presentation. Multifocal pneumonia a/w Pleural effusion and hypoxia Recent postoperative status, came in with wet cough of 1 day duration and not feeling well. Admitting CTA chest: No evidence of PE. Small to moderate pleural effusion, right greater than left. Evidence of fluid overload. Asymmetric airspace opacities throughout both lungs, greater on right side suggestive of multifocal pneumonia. Echo with EF of 55 to 60%, nondilated cardiac chambers, normal systolic LV function. Patient received a dose of Rocephin 01/03, start Rocephin and doxycycline 01/04. Patient still with cough and oxygen requirement. Increase mobility, incentive spirometer, Lasix as needed and w/ each blood transfusion. Consult pulm given multifocal pneumonia with pleural effusion and hypoxia Repeat chest imaging in 6 weeks to document resolution. Wean down O2 as sophia. Follow admitting blood culture. Symptomatic anemia: iron 25, transferrin 8. get folate and vitamin B12 level. Continue iron supplement on discharge. Acute blood loss anemia: As a complication of recent surgery PV bleed, recent right Salpingectomy Ongoing PV Bleed per OT on 12/31 per pt, admitting hemoglobin of 6.5. Admitting CTAP: Small hyperdense pelvic fluid with trace ascites, compatible with recent ectopic surgery. No large hematoma is seen. Status post 2 unit PRBC so far, hemoglobin around 10.6 today afternoon. Discussed with gynecology, gynecology consult placed, await further recommendation. Monitor HnH closely. Transfuse for HnH <8 or symptomatic anemia. Constipation: not moved bowel since 12/31. Eating ok, no belly pain, is moving gas. c/w bowel regimen. uptitrate as needed. follow. Likely demand ischemia: Likely secondary to acute illness, troponin down trended from 500s, patient with no chest pain. Echo with no regional wall motion abnormality. EKG without acute ST or T changes. c/w telemetry monitoring. DVT ppx: teds, scds CODE: Full code Dispo: From home, likely to remain in the hospital x few days Admission and Anticipated Discharge Date Admission Date: January 04, 2024 Subjective Patient was seen and examined at bedside. Patient was lying in bed, on 6 L oxygen via oxygen mask, NAD, resting comfortably. Patient reports feeling weak but better than yesterday. 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 Patient denies fever. Reports PV bleed. Patient has nor moved bowel since OT, reports eating okay. Reports moving gas, denies abdominal pain. Patient's significant other [place] was present at bedside was also updated on plan of care. Answered all their questions, they voiced understanding and were agreeable to plan of care. Physical Exam Physical Exam: GENERAL: Alert and oriented x3. NAD, on 6L O2 via OM. HEENT: + pallor, no icterus. Pupils equal, round and reactive to light. Oral mucosa moist. NECK: No JVD, no neck masses. HEART: S1 and S2 heard. Regular rate and rhythm. No murmur, no gallop. RESPIRATORY SYSTEM: Normal AP diameter. No accessory muscle use. No wheezing, bl occ crackles. ABDOMEN: Soft, bowel sounds present, nontender, no distention. Lap incision site healthy, clean. CENTRAL NERVOUS SYSTEM: No facial droop. Speech is clear. Obeys simple commands. Moves extremities. EXTREMITIES: No edema, no erythema seen. - bleed noted. Results & Data Results & Data Vital Signs (Past 12 Hours) Vital Signs Temp Pulse Pulse Resp BP BP Pulse Ox 01/05/24 14:10 37.1 C 80 16 106/68 100 01/05/24 13:29 36.9 C 80 16 120/76 100 01/05/24 12:29 36.7 C 89 16 119/76 97 01/05/24 12:00 36.7 C 96 H 18 119/66 96 01/05/24 11:59 36.9 C 88 16 119/76 100 01/05/24 11:44 36.6 C 86 16 110/64 100 01/05/24 11:21 37.0 C 83 16 118/70 100 01/05/24 07:43 106 H 01/05/24 07:43 01/05/24 07:30 36.9 C 81 16 108/65 98 01/05/24 03:03 37.0 C 89 18 121/61 98 O2 Del Method O2 Flow Rate 01/05/24 14:10 01/05/24 13:29 6 01/05/24 12:29 6 01/05/24 12:00 Oxymask 01/05/24 11:59 01/05/24 11:44 6 01/05/24 11:21 6 01/05/24 07:43 01/05/24 07:43 Oxymask 6 01/05/24 07:30 Oxymask 6 01/05/24 03:03 Oxymask 6 (4) Ectopic Intrauterine status: without intrauterine Laterality: right Location of ectopic : ovarian Qualified Code(s): O00.201 - Right ovarian without intrauterine
--- NOTE | 2024-01-05 15:29 | Pulmonary Consultation ---
Date of Consultation January 05, 2024 Assessment & Plan (1) Acute respiratory failure with hypoxia: Acute hypoxia secondary to volume overload and pneumonia. Hypoxemia is rapidly resolving. Encouraged the use of incentive spirometer and discussed with the nurse about getting her device to use at bedside. Recommend ambulatory oxygen saturations on room air tomorrow to see if the patient can be discharged home. (2) Pulmonary edema: She has mild pulmonary edema and small pleural effusions bilaterally which will resolve with time. Consider as needed diuretics (3) Acute pneumonia: Agree with broad-spectrum antibiotics and likely transitioning to p.o. Augmentin and doxycycline tomorrow. Plan Thank you for the consult. Please call questions History of Present Illness Reason for Consultation: Pleural effusions and hypoxemia Attending Physician: Patrick Mitchell MD History of Present Illness 28-year-old female with a past medical history of ruptured ectopic right fallopian tube resected 01/01/2024 who presented to the hospital on the due to increasing shortness of breath and cough. Patient is a smoker and typically smokes a quarter of a pack of cigarettes a day. She had a chest CTA completed on the which revealed small to moderate bilateral effusions, right greater than left. Asymmetric airspace opacities, right greater than left. Labs have been significant for leukocytosis and anemia requiring blood transfusions. Currently she has on Rocephin and doxycycline. MRSA screen was not yet completed. Echo revealed normal LV function with an EF of 55 to 60%. No significant valvulopathy. She notes that she did have a bit of a productive cough last night which is improving. Her dyspnea has improved significantly as well. I was able to wean her off of oxygen and she maintained sats in the high 90s. She denies any fevers or chills. Denies any other prior pulmonary conditions. Allergies Allergy/AdvReac Type Severity Reaction Status Date / Time buckwheat Allergy Severe Swelling Verified 01/04/24 13:33 of Lip/Tongue/Throat Home Medications Medication Instructions Recorded Confirmed Type dextroamphetamine-amphetamine ER 30 mg PO QAM 01/01/24 01/04/24 History 30 mg 24hr capsule,extend release ferrous sulfate 325 mg (65 mg 325 mg PO DAILY #60 tabs 01/01/24 01/04/24 Rx iron) tablet ibuprofen 600 mg tablet 600 mg PO Q6H PRN pain #30 tabs 01/01/24 01/04/24 Rx oxycodone-acetaminophen 5 mg-325 1 tab PO Q4H PRN pain #20 tabs 01/01/2401/03 Rx mg tablet (Percocet) dextroamphetamine-amphetamine 10 15 mg PO DAILYBL 01/04/24 01/04/24 History mg tablet Patient History Medical History (Updated 01/05/24 @ 16:16 by Savage Meneses MD) Ectopic without intrauterine Ruptured ectopic Anxiety Vitamin D deficiency Paresthesia Insomnia Headache Anxiety ADHD Social History Smoking Status: Current every day smoker Tobacco Type: Cigarettes Cigarettes Per Day: 1 pack a day; Second Hand Exposure: No; Do You Dip or Chew Tobacco: No; Tobacco Cessation Education Requested by Patient: No Hx Alcohol Use: Yes Alcohol type: beer Hx Substance Use: No Preferred Language: Luxembourgish Communication Ability: Effective Occupational Health Nurse Supervisor Required: No Beliefs That Will Affect Care: None Current Living Situation: Other Current Living Situation Comment: Boyfriend Other Information That Helps Us Care for You: No Feels Safe at Home: No Is there a partner from a previous relationship who is making you feel unsafe now?: No Any Concerns about Your Family Situation: No Would You Like to Speak to Someone About Your Situation: No Safety Concerns: Feels Safe At This Time Assistive Devices: None Review of Systems Review of Systems: All systems reviewed & are unremarkable except as noted in HPI & below Physical Exam Physical Exam: Constitutional: Patient appears to be of their stated age. Patient is in no apparent distress. Patient is well-developed. Eyes: Pupils are equal round and reactive to light. Conjunctivae are normal. Anicteric sclera. Ears nose, mouth and throat: Mallampati class 2. Normal posterior oropharynx. Uvula is midline. Neck: Trachea is midline. Visual inspection is normal. Respiratory: Mild rhonchi bilaterally. No significant increased work of breathing Cardiovascular: Regular rate and rhythm. No murmurs. No edema. Gastrointestinal: Normal bowel sounds, soft, nontender and nondistended. No hepatosplenomegaly noted. Musculoskeletal: No cyanosis. Patient is able to move all extremities. Strength is 5 out of 5 in the upper and lower extremities. Skin: No rashes, warm dry and intact. Neurologic: No obvious focal neurological deficits seen. Psychiatric: Alert and oriented x3 with a euthymic affect. Results & Data Results & Data Vital Signs (Past 12 Hours) Vital Signs Temp Pulse Pulse Resp BP BP Pulse Ox 01/05/24 14:10 37.1 C 80 16 106/68 100 01/05/24 13:29 36.9 C 80 16 120/76 100 01/05/24 12:29 36.7 C 89 16 119/76 97 01/05/24 12:00 36.7 C 96 H 18 119/66 96 01/05/24 11:59 36.9 C 88 16 119/76 100 01/05/24 11:44 36.6 C 86 16 110/64 100 01/05/24 11:21 37.0 C 83 16 118/70 100 01/05/24 07:43 106 H 01/05/24 07:43 01/05/24 07:30 36.9 C 81 16 108/65 98 O2 Del Method O2 Flow Rate 01/05/24 14:10 01/05/24 13:29 6 01/05/24 12:29 6 01/05/24 12:00 Oxymask 01/05/24 11:59 01/05/24 11:44 6 01/05/24 11:21 6 01/05/24 07:43 01/05/24 07:43 Oxymask 6 01/05/24 07:30 Oxymask 6 PG Care Time/CCT Total # of Minutes Spent Total Time Spent with Patient: Total time spent is greater than 50% in coordination of care (as documented) at patient's floor/unit and/or counseling patient: Coding Level of Care Code 49603 INT INP/OBS CARE 2/55MIN Diagnoses Acute respiratory failure with hypoxia J96.01 Pulmonary edema J81.1 Acute pneumonia J18.9
[2024-01-05] MEDS: DOXYCYCLINE HYCLATE 100 MG CAP PO SCH (15:54)
[2024-01-05] MEDS: DOCUSATE SODIUM/SENNA 50/8.6MG TAB PO SCH (15:54)
--- OUTSIDE RECORDS SUMMARY | 2024-01-05 16:30 | External Medical Summary | Summary of Care ---
Author Name Unknown Organization [facility] Address [address] [place] [address] Phone [phone] Care Team Providers Care Director Stage Name Role Phone Rodney Bennett DO Primary Care Provider Reason for Visit * Reason Onset Date Comments Medication Refill 12/31/2023 Encounter Details Date Type Department Care Team (Late st Contact Info) Description 12/31/2023 Refill Family Practice [facility] [address] [place] [address] Rodney Bennett DO [address] [place] [address] Attention deficit disorder, unspecified hyperactivity presence Allergies Active Allergy Reactions Criticality Noted Date Comments Buckwheat Anaphylaxis,Cough,Ed kofi face/lips/tongue,Hives,Itching,Nausea/ vomiting High 11/18/2005 documented as of this encounter (statuses as of 01/01/2024) Medications Medication Sig Dispensed Refills Start Date End Date Status Drospirenone-Ethin yl Estradiol 3-0.03 MG Oral Tablet (Rafaela 28)Indications:Ini tiation of OCP (BCP) Take 1 Tablet by mouth in the morning. 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 90 Tablet 0 11/02/2023 Active Amphetamine-Dextro amphetamine 10 MG Oral Tablet (Adderall)Indicati ons:Attention deficit disorder, unspecified hyperactivity presence Take 1.5 Tablets by mouth in the morning. 45 Tablet 0 12/25/2023 Active Amphetamine-Dextro amphet ER 30 MG Oral Capsule Extended Release 24 Hour (Adderall XR)Indications:Att ention deficit disorder, unspecified hyperactivity presence Take 1 Capsule by mouth in the morning. 30 Capsule 0 01/01/2024 Active Amphetamine-Dextro amphet ER 30 MG Oral Capsule Extended Release 24 Hour (Adderall XR)Indications:Att ention deficit disorder, unspecified hyperactivity presence Take 1 Capsule by mouth in the morning. 30 Capsule 0 11/27/2023 4 Discontinue d(Refill) documented as of this encounter (statuses as of 01/01/2024) Active Problems Problem Noted Date Diagnosed Date Food insecurity 01/29/2023 Overview: Per [facility] Protocol Ecchymoses, spontaneous 01/23/2023 documented as of this encounter (statuses as of 01/01/2024) Immunizations Name Administration Dates Next Due COVID-19 mRNA, LNP-s, No Pre serve, 2-Dose Series (Moderna) 01/28/2021,12/31/2020 Covid-19, Mrna, Lnp-s, Pf, B ivalent, 30 Mcg, IM, 12 yrs and above ([employer] 08/29/2022 documented as of this encounter Social History Tobacco Use Types Packs/Day Years Used Date Smoking Tobacco: Former Cigarettes Smokeless Tobacco: Never Alcohol Use Standard Drinks/Week Comments Yes 0 (1 standard drink = 0.6 oz pur e alcohol) occ Hunger Vital Sign Answer Date Recorded Within the past 12 months, y ou worried that your food would run out before you got the money to buy more. Sometimes true Within the past 12 months, t he food you bought just didn't last and you didn't have money to get more. Patient declined Sex and Gender Information Value Date Recorded Sex Assigned at Female 10/14/2022 5:02 AM EST Gender Identity Female 10/14/2022 5:02 AM EST Sexual Orientation Bisexual 10/14/2022 5: 02 AM EST Job Start Date Occupation Industry Not on file Not on file Not on file documented as of this encounter Miscellaneous Notes * Telephone Encounter - Rodney Bennett DO - 01/01/2024 12:59 PM EDT Signed Prescriptions: Disp Refills Amphetamine-Dextroamphet ER 30 MG Oral Cap*30 Cap*0 Sig: Take 1 Capsule by mouth in the morning. Authorizing Provider: RODNEY BENNETT * Telephone Encounter - Helena Sanchez [facility] - 01/01/2024 11:55 AM EDTPending Prescriptions: Disp Refills Amphetamine-Dextroamphet ER 30 MG Oral Cap*30 Cap*0 Sig: Take 1 Capsule by mouth in the morning. * Telephone Encounter - Helena Sanchez [facility] - 01/01/2024 11:55 AM EDT I have reviewed the patients controlled substance dispensing history in the Prescription Drug Monitoring Program in compliance with the [facility] regulations before prescribing a controlled substance. PDMP checked on 01/01/2024. Pending Prescriptions: Disp Refills Amphetamine-Dextroamphet ER 30 MG Oral Ca*30 Cap*0 Sig: Take 1 Capsule by mouth in the morning. Last Visit: 07/26/2023 (in office), 11/26/2023 (telemedicine) Next Visit: 07/28/2024 Date medication was last filled: 12/01/23 Date medication is due for refill: 12/30/23 Pharmacy: [id number] [facility] Is this request for a controlled substance? Yes and Urine Drug Screen Not completed Toxicology results: Results for orders placed or performed in visit on 10/26/22 TOXICOLOGY, URINE SCREEN W/ CONFIRMATION Result Value Amphetamines Screen, U Positive (A) Benzodiazepines Screen, U Negative Cannabinoids Screen, U Negative Cocaine Metabolite Screen, U Negative Fentanyl Screen, U Negative Hydrocodone Screen, U Negative Methadone Metabolite Screen, U Negative Morphine/Codeine Screen, U Negative Oxycodone Screen, U Negative Narrative Cutoff Concentrations: Drug Level Amphetamines 500 ng/mL Benzodiazepines 100 ng/mL Cannabinoids 50 ng/mL Cocaine Metabolite 150 ng/mL Fentanyl 1 ng/mL Hydrocodone / Hydromorphone 300 ng/mL Methadone Metabolite 100 ng/mL Morphine / Codeine 300 ng/mL Oxycodone / Oxymorphone 100 ng/mL Screening results are presumptive and can only be used for medical purposes. Positive screening results are reflexed to confirmatory testing. Please approve if appropriate. Thanks, Helena Sanchez Clinical Pharmacist [facility]) [phone] 01/01/2024, 11:55 AM documented in this encounter Plan of Treatment Upcoming Encounters Date Type Department Care Team (Late st Contact Info) Description 07/28/2024 1:20 PM EST Office Visit Family Practice [facility] [place] [address] [facility] [place] [address] Rodney Bennett DO [address] [facility] [place] [address] Health Maintenance Due Date Last Done Comments Depression Screening 2005 HIV Screening 01/21/2008 Hepatitis C Screening 2011 DTaP,Tdap,and Td Vaccines (1 - Tdap) 01/21/2012 Hepatitis B (1 of 3 - 19+ 3-dose series) 01/21/2012 COVID-19 Vaccine (4 - 2022-2 4 season) 2023 08/29/2022, 01/28/2021, 12/31/2020 Influenza Vaccine (FLU shot) (Season Ended) 2024 Pap Smear 03/05/2026 03/05/2023 Cervical Cancer Screening 03/05/2028 HPV/Co-Test 03/05/2028 03/05/2023 GARDASIL-HPV IMMUNIZATION SERIES Aged Out No longer eligible b ased on patient's age to complete this topic MENINGOCOCCAL (MENACTRA/MENVEO) Aged Out No longer eligible b ased on patient's age to complete this topic Pneumococcal Vaccine: Pediatrics (0 to 5 Years) and At-Risk Patients (6 to 64 Years) Aged Out No longer eligible b ased on patient's age to complete this topic documented as of this encounter Medical Devices Not on filedocumented as of this encounter Visit Diagnoses Diagnosis Attention deficit disorder, unspecified hyperactivity presence documented in this encounter Care Teams Director Stage Relationship Specialty Start Date End Date Rodney Bennett DO [address] [place] [address] PCP - General Family Medicine 03/03/20 documented as of this encounter
--- OUTSIDE RECORDS SUMMARY | 2024-01-05 16:30 | External Medical Summary | Summary of Care ---
Author Name Unknown Organization [facility] Address [address] [place] [address] Phone [phone] Care Team Providers Care Promotions Officer Name Role Phone Roberta Bennett DO Primary Care Provider Reason for Visit * Reason Onset Date Comments Advice 01/01/2024 Follow up ECTOPI C Encounter Details Date Type Department Care Team (Late st Contact Info) Description 01/01/2024 Telephone Gynecology/Obstetrics [facility] [address] [place] [address] Porter Galindo MD [address] [place] [address] Advice (Follow up ECTOPIC) Allergies Active Allergy Reactions Criticality Noted Date Comments Buckwheat Anaphylaxis,Cough,Ed kofi face/lips/tongue,Hives,Itching,Nausea/ vomiting High 11/18/2005 documented as of this encounter (statuses as of 01/01/2024) Medications Medication Sig Dispensed Refills Start Date End Date Status Drospirenone-Ethinyl Estradiol 3-0.03 MG Oral Tablet (Rafaela 28)Indications:Initi ation of OCP (BCP) Take 1 Tablet by mouth in the morning. 28 Tablet 12 07/26/2023 Active Additional Information Patient not taking.Reported on 11/26/2023 Amphetamine-Dextroam phetamine 20 MG Oral Tablet (Adderall)Indication s:Attention deficit disorder (ADD) without hyperactivity Take 1 Tablet by mouth 3 times a day. 90 Tablet 0 11/02/2023 Active Amphetamine-Dextroam phetamine 10 MG Oral Tablet (Adderall)Indication s:Attention deficit disorder, unspecified hyperactivity presence Take 1.5 Tablets by mouth in the morning. 45 Tablet 0 12/25/2023 Active Amphetamine-Dextroam phet ER 30 MG Oral Capsule Extended Release 24 Hour (Adderall XR)Indications:Atten tion deficit disorder, unspecified hyperactivity presence Take 1 Capsule by mouth in the morning. 30 Capsule 0 01/01/2024 Active documented as of this encounter (statuses as of 01/01/2024) Active Problems Problem Noted Date Diagnosed Date Food insecurity 01/29/2023 Overview: Per [facility] Protocol Ecchymoses, spontaneous 01/23/2023 Comments Yes documented as of this encounter (statuses as of 01/01/2024) Immunizations Name Administration Dates Next Due COVID-19 mRNA, LNP-s, No Pre serve, 2-Dose Series (Moderna) 01/28/2021,12/31/2020 Covid-19, Mrna, Lnp-s, Pf, B ivalent, 30 Mcg, IM, 12 yrs and above ([employer]izer) 08/29/2022 documented as of this encounter Social [...] have money to get more. Patient declined Comments Yes Sex and Gender Information Value Date Recorded Sex Assigned at Female 10/14/2022 5:02 AM EST Gender Identity Female 10/14/2022 5:02 AM EST Sexual Orientation Bisexual 10/14/2022 5: 02 AM EST Job Start Date Occupation Industry Not on file Not on file Not on file documented as of this encounter Miscellaneous Notes * Telephone Encounter - Violet De La Cruz RN - 01/01/2024 5:[address] Galindo, pt is at ER. He is taking her to the OR. * Telephone Encounter - Violet De La Cruz RN - 01/01/2024 2:[address] Galindo, he would like pt to have an [employer]. left message for patient to call office * Telephone Encounter - Violet De La Cruz RN - 01/01/2024 1:59 PM EDT Spoke with Dr. Galindo. He would like to call pt and talk with her. * Telephone Encounter - Violet De La Cruz RN - 01/01/2024 1:37 PM EDT Spoke with pt. She feels tender in her belly especially to the touch. No bleeding She immediately went into what sounded like a panic attack on the phone. She stated that she has herself so worked upover the possibility of this rupturing and her needing emergency surgery. She said she she just needs to get this out. She knows that her number went up and that this could rupture. I advised pt thatthis number does go up typically on this day after MTX. She said she understands but feels that sheneeds this out now. I advised pt that I would speak with Dr. Galindo and call her back. Pt agreeable. * Telephone Encounter - Violet De La Cruz RN - 01/01/2024 1:36 PM EDT Pt's HCG was 9989. Will review it with DR. Galindo. * Telephone Encounter - Shelby Santos LPN - 01/01/2024 1:19 PM EDT ----- Message from Leana Phan MD sent at 01/01/2024 1:17 PM EDT ----- Never mind I didn't see the ectopic she had MTX Please ignore my message-follow up with Dr Galindo Thanks! ----- Message ----- From: Davie Morgan Automated Processing Sent: 01/01/2024 1:08 PM EDT To: Leana Phan MD documented in this encounter Plan of Treatment Upcoming Encounters Date Type Department Care Team (Late st Contact Info) Description 07/28/2024 1:20 PM EST Office Visit Family Practice [facility] [place] [address] [facility] [place], [place] [address] Roberta Bennett DO [address] [facility] [place], [place] [address] Health Maintenance Due Date Last Done Comments [...] Not on filedocumented as of this encounter Care Teams Promotions Officer Relationship Specialty Start Date End Date Roberta Bennett DO [address] [place] [address] PCP - General Family Medicine 03/03/20 documented as of this encounter
--- NOTE | 2024-01-05 20:44 | OB/GYN Consultation ---
Date of Consultation January 05, 2024 Assessment & Plan (1) Acute pneumonia: (2) Anemia requiring transfusions: (3) Pulmonary edema: (4) Acute respiratory failure with hypoxia: Plan Continue medical tx plan No WELLNESS PROGRAM ADMINISTRATOR recommendation at this time History of Present Illness Reason for Consultation: Status post laparoscopy on 01/01/2024 for ectopic Requesting Physician: Dr Mitchell Attending Physician: Patrick Mitchell MD History of Present Illness Patient is a 28-year-old status post laparoscopy on 01/01/2024 for ectopic . Details of surgery and the surgical note. Surgery was otherwise unremarkable except for hemoperitoneum.. A stat H&H was done psot op. Hemoglobin of 8. Patient was stable and discharged home with instructions. Today patient presented to the emergency room with her boyfriend and has complaints of extreme fatigue and dry cough. She was admitted on the medicine. work up showed pt has hemoglobin of 6 and pneumonia. she has since received and has been transfused with RBC and antibiotics and feels much better Allergies Allergy/AdvReac Type Severity Reaction Status Date / Time buckwheat Allergy Severe Swelling Verified 01/04/24 13:33 of Lip/Tongue/Throat Home Medications Medication Instructions Recorded Confirmed Type dextroamphetamine-amphetamine ER 30 mg PO QAM 01/01/24 01/04/24 History 30 mg 24hr capsule,extend release ferrous sulfate 325 mg (65 mg 325 mg PO DAILY #60 tabs 01/01/24 01/04/24 Rx iron) tablet ibuprofen 600 mg tablet 600 mg PO Q6H PRN pain #30 tabs 01/01/24 01/04/24 Rx oxycodone-acetaminophen 5 mg-325 1 tab PO Q4H PRN pain #20 tabs 01/01/24 01/04/24 Rx mg tablet (Percocet) dextroamphetamine-amphetamine 10 15 mg PO DAILYBL 01/04/24 01/04/24 History mg tablet Patient History Medical History (Updated 01/05/24 @ 16:16 by Savage Meneses MD) Ectopic without intrauterine Ruptured ectopic Anxiety Vitamin D deficiency Paresthesia Insomnia Headache Anxiety ADHD Social History Smoking Status: Current every day smoker Tobacco Type: Cigarettes Cigarettes Per Day: 1 pack a day; Second Hand Exposure: No; Do You Dip or Chew Tobacco: No; Tobacco Cessation Education Requested by Patient: No Hx Alcohol Use: Yes Alcohol type: beer Hx Substance Use: No Preferred Language: Irish Communication Ability: Effective Radiation Control Technician Required: No Beliefs That Will Affect Care: None Current Living Situation: Other Current Living Situation Comment: Boyfriend Other Information That Helps Us Care for You: No Feels Safe at Home: No Is there a partner from a previous relationship who is making you feel unsafe now?: No Any Concerns about Your Family Situation: No Would You Like to Speak to Someone About Your Situation: No Safety Concerns: Feels Safe At This Time Assistive Devices: None Results & Data Vital Signs (Past 12 Hours) Vital Signs Temp Pulse Pulse Resp BP BP Pulse Ox 01/05/24 19:20 37.4 C 78 18 115/66 98 01/05/24 16:00 36.5 C 97 H 18 125/68 96 01/05/24 14:10 37.1 C 80 16 106/68 100 01/05/24 13:29 36.9 C 80 16 120/76 100 01/05/24 12:29 36.7 C 89 16 119/76 97 01/05/24 12:00 36.7 C 96 H 18 119/66 96 01/05/24 11:59 36.9 C 88 16 119/76 100 01/05/24 11:44 36.6 C 86 16 110/64 100 01/05/24 11:21 37.0 C 83 16 118/70 100 O2 Del Method O2 Flow Rate 01/05/24 19:20 Room Air 01/05/24 16:00 Oxymask 6 01/05/24 14:10 01/05/24 13:29 6 01/05/24 12:29 6 01/05/24 12:00 Oxymask 01/05/24 11:59 01/05/24 11:44 6 01/05/24 11:21 6
[2024-01-05 23:22] LABS: Hematocrit (blood only) 27.2 % (37.0-47.0); Hemoglobin 9.4 g/dl (12.0-16.0)
[2024-01-06 06:13] LABS: Hematocrit (blood only) 27.9 % (37.0-47.0); Hemoglobin 9.8 g/dl (12.0-16.0); Mean Corpuscular Hemoglobin 30.9 pg (25.0-34.0); Mean Corpuscular Hgb Conc 35.1 g/dL (32.0-36.0); Mean Platelet Volume 9.2 fL (9.4-12.4); Platelet Count 319 K/uL (130-400); RDW Coefficient of Variation 13.6 % (11.5-14.5); RDW Standard Deviation 42.9 fL (36.4-46.3); Red Blood Count 3.17 M/uL (4.20-5.40); White Blood Count 11.85 K/ul (4.8-10.8)
[2024-01-06 06:56] LABS: BUN Creatinine Ratio 26.8 (10-20); Calcium 9.3 mg/dl (8.6-10.3); Creatinine Clr Calc Pharmacy 137.9 ml/min; Est GFR (Non-African American) 125.1 ml/min; Phosphorus 3.4 mg/dl (2.5-4.9); Potassium 3.7 mmol/L (3.5-5.1)
[2024-01-06 07:20] LABS: Folate (Folic Acid),Ser orPlas 14.38 ng/ml (>5.38)
[2024-01-06] MEDS: CYANOCOBALAMIN (B-12) 500 MCG TABLET PO SCH (09:59)
[2024-01-06] MEDS: FOLIC ACID 1 MG TAB PO SCH (09:59)
--- NOTE | 2024-01-06 10:47 | Progress Note ---
Date of Service January 06, 2024 Assessment & Plan (1) Acute pneumonia: (2) Anemia requiring transfusions: Plan 1. Status post acute anemia following laparoscopic scopic surgery. 2. Acute pneumonia Patient is doing well received 2 units of packed RBC and antibiotics and is remarkably improved her O2 sat on room air is remarkably improved. Patient is under the care of medicine service For PRODUCTION LINE standpoint, patient can be discharged home if stable as per medicine evaluation Admission and Anticipated Discharge Date Admission Date: January 04, 2024 Subjective Patient doing well and breath. No chills or fever. Patient is off oxygen and O2 sat in room air is 99%. Review of labs shows H&H is remarkably improved with a hemoglobin is now over vaginal bleeding is minimal Results & Data Vital Signs (Past 12 Hours) Vital Signs Temp Pulse Pulse Resp BP Pulse Ox O2 Del Method 01/06/24 10:34 36.9 C 77 18 109/65 100 Room Air 01/06/24 07:51 37.0 C 79 17 97/58 L 97 Room Air 01/06/24 07:30 83 01/06/24 07:30 Oxymask 01/06/24 02:57 37.0 C 79 18 124/73 95 Room Air O2 Flow Rate 01/06/24 10:34 01/06/24 07:51 01/06/24 07:30 01/06/24 07:30 6 01/06/24 02:57
--- NOTE | 2024-01-06 11:12 | Pulmonology Progress Note ---
Date of Service January 06, 2024 Assessment & Plan (1) Acute respiratory failure with hypoxia: Plan: Acute hypoxia secondary to volume overload and pneumonia. Hypoxemia has resolved. Recommend continued use of incentive spirometer given recent abdominal surgery. (2) Pulmonary edema: Plan: Seems to be resolving. Recommend repeating chest x-ray in 3 to 4 weeks to ensure resolution of pleural effusions and infiltrates. (3) Acute pneumonia: Plan: Please do not transition to p.o. antibiotics today and complete a course of 7 d ays of antibiotics. She is stable for discharge from the hospital from a pulmonary perspective. Plan Thank you for the consult. Please call questions Admission and Anticipated Discharge Date Admission Date: January 04, 2024 Subjective Patient has been walking denies any shortness of breath. She is very compliant with her incentive spirometer. She has had some constipation. She is eager to go home otherwise. She does not require supplemental oxygen since yesterday afternoon. Review of Systems Review of Systems: All systems reviewed & are unremarkable except as noted in HPI & below Physical Exam Physical Exam: Constitutional: Patient appears to be of their stated age. Patient is in no apparent distress. Patient is well-developed. Eyes: Pupils are equal round and reactive to light. Conjunctivae are normal. Anicteric sclera. Ears nose, mouth and throat: Mallampati class 2. Normal posterior oropharynx. Uvula is midline. Neck: Trachea is midline. Visual inspection is normal. Respiratory: Clear to auscultation bilaterally. Cardiovascular: Regular rate and rhythm. No murmurs. No edema. Gastrointestinal: Normal bowel sounds, soft, nontender and nondistended. No hepatosplenomegaly noted. Musculoskeletal: No cyanosis. Patient is able to move all extremities. Strength is 5 out of 5 in the upper and lower extremities. Skin: No rashes, warm dry and intact. Neurologic: No obvious focal neurological deficits seen. Psychiatric: Alert and oriented x3 with a euthymic affect. Results & Data Results & Data Vital Signs (Past 12 Hours) Vital Signs Temp Pulse Pulse Resp BP Pulse Ox O2 Del Method 01/06/24 10:34 36.9 C 77 18 109/65 100 Room Air 01/06/24 07:51 37.0 C 79 17 97/58 L 97 Room Air 01/06/24 07:30 83 01/06/24 07:30 Oxymask 01/06/24 02:57 37.0 C 79 18 124/73 95 Room Air O2 Flow Rate 01/06/24 10:34 01/06/24 07:51 01/06/24 07:30 01/06/24 07:30 6 01/06/24 02:57 PG Care Time/CCT Total # of Minutes Spent Total Time Spent with Patient: Total time spent is greater than 50% in coordination of care (as documented) at patient's floor/unit and/or counseling patient: Coding Level of Care Code 57744 SUB INP/OBS CARE 2/35MIN Diagnoses Acute respiratory failure with hypoxia J96.01 Pulmonary edema J81.1 Acute pneumonia J18.9
[2024-01-06] MEDS: LACTULOSE SYRUP 20 GM/30 ML UDC PO ONE (13:34)
--- NOTE | 2024-01-06 15:02 | Discharge Summary ---
Date of Service January 06, 2024 Admission HPI Per Admitting Provider This is a 28 yo F with PMHx of recent laparoscopic surgical procedure invoving ectopic ruptured Right fallopian tube which was resected on 01/01/24, R ovary appeared normal. Within OR report it is noted that left fallopian tube was absent from previous surgery, left ovary and appeared normal. The patient is present here with her boyfriend, Luis, who is at bedside. She states that she was feeling extremely tired and fatigued yesterday. She also noticed developed dry cough. She checked her pulse ox with a home monitor this morning and noted that it was in the 70s. She does not have any supplemental O2 requir ements at baseline. Patient does admit to smoking, but has not in several days since being recently admitted. Typically smokes 3 to 5 cigarettes daily has for several years. Patient denies any abdominal complaints, no vaginal bleeding, no hematuria, no bowel movement since prior to surgical procedure on 12/31 for ruptured fallopian tube for right-sided ectopic by Dr. Galindo. She reports her current complaint includes a thumping headache for which she was administered Tylenol in the ER. Pt denies fever, chills, sweats. No sick contacts. Pt tolerated po intake yesterday minimally, no nausea or vomiting. Pt takes medication for ADHD however has not had any of the adderall since prior to her admission for the ectopic , she reports about 1 week ago was last dose. Admits to tobacco use with cigarettes, has not smoked in several days, denies the need for a nicotine patch. Previous surgical hx: Left fallopian tube removal in December 2022 due to ectopic ( 1 year ago), where she also required blood transfusion at that time. Family hx: Father: Diabetes, Paternal grandfather : stroke Admission Exam Per Admitting Provider General: awake, alert, no apparent distress, + white female, BMI 26.6, + pallor Head: Normocephalic, atraumatic ENT: PERRL, EOMI, no pharyngeal exudate, mucous membranes moist Chest: Absent breath sounds at bases bilaterally, on 8L via OxyMask, O2 sats 98%, no crackles or rales, dry cough on room air Cardiac: Regular rate, slightly tachycardic with sitting up in bed in the low 100s, otherwise while at rest lying down is in the mid 90s, no murmur, no JVD, normal peripheral pulses, good capillary refill Abdominal: + hypoactive BS x 4 quadrants, + surgical incisions x 4 s/p laproscopic surgery, healing well, minimal ecchymosis, no surrounding erythema or pain with palpation, soft, nondistended, nontender to palpation, no rebound or guarding Extremities: Normal inspection, no peripheral edema or erythema, calfs nontender to palpation Psych: Normal mood and affect Neuro: AAO x 3, strength intact bilaterally and rated 5/5, no motor deficits, speech is clear, no peripheral sensory deficits Principal Diagnosis Pulmonary edema Acute respiratory failure with hypoxia Multifocal pneumonia associated with pleural effusion and hypoxia Symptomatic anemia Acute blood loss anemia Provisional bleed, recent right salpingectomy Constipation Likely demand ischemia Discharge Exam GENERAL: Alert and oriented x3. NAD, on RA HEENT: no pallor, no icterus. Pupils equal, round and reactive to light. Oral mucosa moist. NECK: No JVD, no neck masses. HEART: S1 and S2 heard. Regular rate and rhythm. No murmur, no gallop. RESPIRATORY SYSTEM: Normal AP diameter. No accessory muscle use. No wheezing, bl occ crackles. ABDOMEN: Soft, bowel sounds present, nontender, no distention. Lap incision site healthy, clean. CENTRAL NERVOUS SYSTEM: No facial droop. Speech is clear. Obeys simple commands. Moves extremities. EXTREMITIES: No edema, no erythema seen. - not examined today. Discharge Data Allergies Allergy/AdvReac Type Severity Reaction Status Date / Time buckwheat Allergy Severe Swelling Verified 01/04/24 13:33 of Lip/Tongue/Throat Consultations 01/05/24 10:49 Consult Gynecology Routine 01/05/24 15:10 Consult Pulmonology Routine Ordered Studies 01/04/24 11:28 CT angio chest PE protocol Stat 01/04/24 12:25 CT Abd and Pelvis [CT abd pelvis IV con only] Stat Hospital Course (1) Anemia requiring transfusions: (2) Pulmonary edema: (3) Acute respiratory failure with hypoxia: (4) Ectopic : 28-year-old lady with PMH of recent laparoscopic surgical procedure involving ectopic / ruptured right fallopian tube status post resection on 01/01/2024 [right ovary appeared normal], left fallopian tube removal [December 2022 due to ectopic ], ADHD, tobacco use Presented with complaint of feeling tired/easy fatigability for few days [employer]. She also reported having wet cough since 1 day ago [employer] and not feeling well. She checked her pulse ox at home which was noted to be in 70s. patient reports not moving bowel since after the surgery. She was managed for the following: Pulmonary edema: Likely postoperative status/decreased mobility Acute respiratory failure with hypoxia: Patient's saturation noted to be in 70s, required 6 to 8 L oxygen at presentation, was noted to be tachypneic at presentation. Multifocal pneumonia a/w Pleural effusion and hypoxia Recent postoperative status, came in with wet cough of 1 day duration and not feeling well. Admitting CTA chest: No evidence of PE. Small to moderate pleural effusion, right greater than left. Evidence of fluid overload. Asymmetric airspace opacities throughout both lungs, greater on right side suggestive of multifocal pneumonia. Echo with EF of 55 to 60%, nondilated cardiac chambers, normal systolic LV function. Patient received a dose of Rocephin 01/03, start Rocephin and doxycycline 01/04. Patient reports improving cough, has been maintaining saturation on room air, denies shortness of breath with activity. Patient encouraged continued mobility and incentive spirometer use upon discharge. Pulmonology evaluated, plan for 7-day antibiotic treatment, Okay to DC from their point of view, appreciate rec. patient advised to get repeat chest imaging in 6 weeks time upon discharge to document resolution of her pneumonia and pleural effusion. Patient and her SO [place] were made aware. Patient to follow-up on the final blood culture results with PCP office during her visit within a week time. Symptomatic anemia: iron 25, transferrin 8. folate 14.38 and vitamin B12 247. Continue iron/b12/folate supplement on discharge. Acute blood loss anemia: As a complication of recent surgery PV bleed, recent right Salpingectomy Ongoing PV Bleed after OT on 12/31 per pt, admitting hemoglobin of 6.5. Admitting CTAP: Small hyperdense pelvic fluid with trace ascites, compatible with recent ectopic surgery. No large hematoma is seen. Status post 2 unit PRBC so far, hemoglobin around 10, Patient is hemodynamically stable Evaluated by gynecology, okay to discharge from their point of view. Patient reports improving PV bleed. Patient advised to follow-up with gynecology in 1 to 2 weeks time upon discharge. Constipation: not moved bowel since 12/31. -- Patient mobile . Patient advised to maintain adequate hydration/ambulation and utilize as needed OTC laxative/stool softener with a goal of 1-2 bowel movements a day. Likely demand ischemia: Likely secondary to acute illness, troponin down trended from 500s, patient with no chest pain. Echo with no regional wall motion a bnormality. EKG without acute ST or T changes. DVT ppx: teds, scds CODE: Full code Patient is being discharged home with following instruction at the point of discharge: Follow-up with your primary care physician within a week time and likely you will need labs CBC/CMP/magnesium/phosphorus. Follow-up on the final results of blood culture drawn while inpatient during your visit with your PCP within a week time. You were diagnosed with symptomatic anemia/blood loss anemia secondary to PV bleed. Also your iron and vitamin B12/folate stores are on the lower side. Continue with iron/vitamin B12/folate supplements on discharge. Follow-up with your gynecology in 1 to 2 weeks time upon discharge. You were also diagnosed with multifocal pneumonia associated with pleural effusion and hypoxia, pulmonology evaluated you while in the hospital. You will be discharged on antibiotic to complete 7-day course . You will need repeat imaging of the chest in 6 weeks time to document resolution of your pneumonia and pleural effusion. Coordinate with your PCP office to set up the test. For your constipation, maintain ambulation and adequate hydration. You can use [id number] laxatives and stool softener with a goal of 1-2 bowel movements a day. Take your medications as prescribed. Please make sure that you are able to get your medications today by calling your pharmacy before you leave the hospital so that your treatment continuity is not broken. Home Health Attestation I certify that this patient is under my care and that I, or a physicians medication assistant working with me, had a face to-face encounter that meets the home health [id number] encounter requirements with this patient. The encounter with the patient was in whole, or in part, for the following medical condition, which is the primary reason for home health care (list medical condition): I certify that, based on my findings, the following services are medically necessary home health services: My clinical findings support the need for the above services because: Further, I certify that my clinical findings support that this patient is homebound (i.e. absences from home require considerable and taxing effort and are for medical reasons or islam services or infrequently or of short duration when for other reasons) because: Certification for Home Health Services: Based on the above findings, I certify that this patient is confined to the home and needs intermittent assisted care, physical therapy and/or speech therapy or continues to need occupational therapy. The patient is under my care, and I have initiated the establishment of the plan of care. This patient will be followed by a physician who will periodically review the plan of care. Total Time Total Time Spent Total Time Spent (In Minutes): 45 Discharge Plan Discharge Items Patient Disposition: Home - Self-Care Reason For Visit: ACUTE BLOOD LOSS ANEMIA, RESP FAILURE Discharge Diagnosis: Pulmonary edema Acute respiratory failure with hypoxia Multifocal pneumonia associated with pleural effusion and hypoxia Symptomatic anemia Acute blood loss anemia Provisional bleed, recent right salpingectomy Constipation Likely demand ischemia Activity: Resume your previous activity Non-emergency contact: Primary Care Provider Call non-emergency contact if: you have any medication questions and your symptoms worsen Follow-up/Referrals: Roberta Bennett, [Primary Care Provider] - Diet: Heart Healthy Addtl Attending Provider Instructions: Follow-up with your primary care physician within a week time and likely you will need labs CBC/CMP/magnesium/phosphorus. Follow-up on the final results of blood culture drawn while inpatient during your visit with your PCP within a week time. You were diagnosed with symptomatic anemia/blood loss anemia secondary to PV bleed. Also your iron and vitamin B12/folate stores are on the lower side. Continue with iron/vitamin B12/folate supplements on discharge. Follow-up with your gynecology in 1 to 2 weeks time upon discharge. You were also diagnosed with multifocal pneumonia associated with pleural effusion and hypoxia, pulmonology evaluated you while in the hospital. You will be discharged on antibiotic to complete 7-day course . You will need repeat imaging of the chest in 6 weeks time to document resolution of your pneumonia and pleural effusion. Coordinate with your PCP office to set up the test. For your constipation, maintain ambulation and adequate hydration. You can use [id number] laxatives and stool softener with a goal of 1-2 bowel movements a day. Take your medications as prescribed. Please make sure that you are able to get your medications today by calling your pharmacy before you leave the hospital so that your treatment continuity is not broken. Pending Studies at Discharge: Yes Stand-Alone Forms: My [facility], Smoking Cessation Medications and DC Order Prescriptions: New doxycycline hyclate 100 mg Capsule 100 mg PO Q12H 6 Days Qty: 12 0RF Advanced Probiotic 625 mg (10 billion cell) Capsule 1 cap PO DAILY 7 Days Qty: 7 0RF cyanocobalamin (vitamin B-12) 500 mcg Tablet 500 mcg PO QAM Qty: 30 0RF folic acid 1 mg Tablet 1 mg PO QAM Qty: 30 0RF cefdinir 300 mg capsule 300 mg PO BID 5 Days Qty: 10 0RF Continued dextroamphetamine-amphetamine 30 mg capsule,extended release 24hr 30 mg PO QAM oxycodone-acetaminophen [Percocet] 5-325 mg Tablet 1 tab PO Q4H PRN (Reason: pain) Qty: 20 0RF ferrous sulfate 325 mg (65 mg iron) tablet 325 mg PO DAILY Qty: 60 0RF dextroamphetamine-amphetamine 10 mg tablet 15 mg PO DAILYBL Discontinued ibuprofen 600 mg Tablet 600 mg PO Q6H PRN (Reason: pain) Qty: 30 0RF Discharge Orders: Discharge Order (Routine); Ordered 01/06/24 Ordered By: Patrick Mitchell Admission Data Admit Date/Time: 01/04/24 15:05 Attending Provider: Patrick Mitchell Admit Provider: Shaun Gamboa Primary Care Provider: Roberta Bennett Other Providers: Porter Galindo; Benjamin Villatoro; Savage Meneses; Richard Ryan; Janeth Hagan; Jenny Joseph; Yvette Hemphill; Lenny Turpin; Moshe Ambrocio; Mere Foote
== END 2024-01-06 16:50 | disposition home or self-care (01) | DRG 776 ==
LOC: ED 10:58 → 2E 15:05 → SUATTDRO 15:05 → 2E 16:28